=== PATIENT | male | born 1945 | race Caucasian/White ===

== ENCOUNTER 2017-06-26 10:28 | Emergency (ER) | payer MEDICARE, BC ==
--- NOTE | 2017-06-26 10:47 | EDM.PDOC ---
ED HPI GENERAL MEDICAL PROBLEM - General Chief Complaint: Laceration Stated Complaint: THUMB WAS INJURED Time Seen by Provider: 06/26/17 10:42 Source of Information: Reports: Patient History Limitations: Reports: No Limitations - History of Present Illness INITIAL COMMENTS - FREE TEXT/NARRATIVE: Was trapping kaw and accidently caught in right thumb in trap, wearing a glove. No other injuries. - Related Data Allergies Allergy/AdvReac Type Severity Reaction Status Date / Time No Known Allergies Allergy Verified 06/26/17 10:36 Home Meds: Home Meds Acetaminophen/HYDROcodone [Artesian 325-5 MG] 1 tab PO Q4H PRN #10 tab 06/26/17 [Rx ] Amoxicillin/Potassium Clav [Augmentin 875-125 Tablet] 1 each PO BID 10 Days #20 tablet 06/26/17 [Rx] Aspirin 81 mg PO DAILY 06/26/17 [History] Multivitamin [Multivitamins] 06/26/17 [History] Pravastatin [Pravachol] 40 mg PO DAILY 06/26/17 [History] Past Medical History HEENT History: Reports: Hard of Hearing Cardiovascular History: Reports: High Cholesterol - Past Surgical History Male Surgical History: Reports: Prostatectomy Social & Family History - Tobacco Use Smoking Status *Q: Former Smoker Years of Tobacco use: 20 Used Tobacco, but Quit: Yes Month Tobacco Last Used: 36 - Caffeine Use Caffeine Use: Reports: Coffee - Recreational Drug Use Recreational Drug Use: No ED ROS GENERAL - Review of Systems Review Of Systems: ROS reveals no pertinent complaints other than HPI. ED EXAM, SKIN/RASH Exam: See Below Exam Limited By: No Limitations General Appearance: Alert Extremities: Other (laceration from ulnar side of nail bed across base of nailbed and wrapping around side of thumb to mid portion. Actively bleeding. ) Psychiatric: Normal Affect ED SKIN PROCEDURES - Laceration/Wound Repair Right Distal Finger Lac/Wound length In cm: 3 Appearance: Irregular, Mildly Contaminated Distal NVT: Neuro & Vascular Intact Anesthetic Type: Digital Local Anesthesia - Bupivicaine (Marcaine): 0.5% Plain Local Anesthetic Volume: 5cc Skin Prep: Chlorhexidine (Hibiciens) Saline Irrigation (cc's): 100 Exploration/Debridement/Repair: Wound Explored, No Foreign Material Found Suture Size: other (5-0) Suture Type: Nylon Drain Placement: No Sterile Dressing Applied: Nurse Tetanus Status Addressed: Yes Course - Vital Signs Last Recorded V/S: Last Vital Signs Temp 36.9 C 06/26/17 10:39 Pulse 70 06/26/17 10:39 Resp 16 06/26/17 10:39 BP 170/75 H 06/26/17 10:39 Pulse Ox 96 06/26/17 10:39 - Orders/Labs/Meds Meds: Medications Discontinued Medications Generic Name Dose Route Start Last Admin Trade Name Freq PRN Reason Stop Dose Admin Bupivacaine HCl 30 ml 06/26/17 11:05 06/26/17 11:10 Marcaine 0.5% INJECT 06/26/17 11:06 30 ml ONETIME ONE Administration Departure - Departure Time of Disposition: 11:52 Disposition: Home, Self-Care 01 Clinical Impression: Thumb fracture Qualifiers: Encounter type: initial encounter Fracture type: open Phalanx: distal Fracture alignment: displaced Laterality: right Qualified Code(s): S62.521B - Displaced fracture of distal phalanx of right thumb, initial encounter for open fracture - Discharge Information Prescriptions: Acetaminophen/HYDROcodone [Artesian 325-5 MG] 1 tab PO Q4H PRN #10 tab PRN Reason: Pain (Moderate 4-6) Amoxicillin/Potassium Clav [Augmentin 875-125 Tablet] 1 each PO BID 10 Days #20 tablet Instructions: Laceration Care, Adult, [id number] Referrals: Tessy Johns PA [Primary Care Provider] - Forms: ED Department Discharge - Assessment/Plan Assessment:: Had a injury to distal thumb, catching his thumb with glove on in kaw trap. Sustained an open fracture of distal phalynx of right thumb with a 3-4 cm laceration. Plan: X-ray confirms a mildly displaced distal open phlaynx fracture. Case was discussed with Dr. Moreno, orthopedics who recommends cleaning wound up and closing and he will see tomorrow in clinic for fracture follow-up. Wound was closed and dressed with tube gauze. He will be discharged to home with follow- up as planned. Will send home with oral augmentin twice daily for 10 days and will order norco for pain. Other cares discussed including signs of infection.
[2017-06-26] MEDS ORDERED: Bupivacaine 0.5% 30 ML SDV INJECT ONE (11:05)
--- NOTE | 2017-06-26 11:18 | CR ---
Fingers Thumb Rt F5 HISTORY: open laceration right thumb FINDINGS: There is a transverse fracture proximal aspect of the distal phalanx right thumb. Dorsal la ceration is present. The fracture is displaced anteriorly. I see no definite involvement of the artic ular surface. IMPRESSION: Open fracture base of distal phalanx right thumb with anterior displacement.
== END 2017-06-26 12:16 | disposition home or self-care (01) ==
LOC: JP.ED 10:28
DX: S62.521B Displaced fracture of distal phalanx of right thumb, initial encounter for open fracture (principal); E78.00 Pure hypercholesterolemia, unspecified; Z87.891 Personal history of nicotine dependence; Z79.82 Long term (current) use of aspirin; Z79.899 Other long term (current) drug therapy; W23.0XXA Caught, crushed, jammed, or pinched between moving objects, initial encounter
CPT/HCPCS: 12001; 12002; 73140-26-F5; 73140-F5; 99282-25; 99283-25

== ENCOUNTER 2017-09-15 09:20 | Emergency (ER) | payer MEDICARE, BC ==
[2017-09-15] MEDS ORDERED: Lidocaine 2% 20 ML MDV SUBCUT ONE (09:58)
--- NOTE | 2017-09-15 10:06 | EDM.PDOC ---
ED HPI GENERAL MEDICAL PROBLEM - General Chief Complaint: Skin Complaint Stated Complaint: FISH HOOK LT PINKY FINGER Time Seen by Provider: 09/15/17 09:50 Source of Information: Reports: Patient History Limitations: Reports: No Limitations - History of Present Illness INITIAL COMMENTS - FREE TEXT/NARRATIVE: 72 yo male here with a fish hook in the distal/dorsal L 5th finger. Tetanus UTD. 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 (see below) (None) - Related Data Allergies Allergy/AdvReac Type Severity Reaction Status Date / Time No Known Allergies Allergy Verified 09/15/17 09:32 Home Meds: Home Meds Aspirin 81 mg PO DAILY 06/26/17 [History] Multivitamin [Multivitamins] 1 tab PO DAILY 06/26/17 [History] Pravastatin [Pravachol] 40 mg PO DAILY 06/26/17 [History] Past Medical History HEENT History: Reports: Hard of Hearing Cardiovascular History: Reports: High Cholesterol Musculoskeletal History: Reports: Other (See Below) Other Musculoskeletal History: R thumb open Fx - Past Surgical History Male Surgical History: Reports: Prostatectomy Social & Family History - Tobacco Use Smoking Status *Q: Former Smoker Years of Tobacco use: 20 Used Tobacco, but Quit: Yes Month Tobacco Last Used: 30 Second Hand Smoke Exposure: Yes - Caffeine Use Caffeine Use: Reports: Coffee - Recreational Drug Use Recreational Drug Use: No ED ROS GENERAL - Review of Systems Review Of Systems: See Below Skin: Reports: Wound (puncture wound from fish hook still in his finger) Neurological: Reports: No Symptoms ED EXAM, SKIN/RASH Exam: See Below Exam Limited By: No Limitations General Appearance: Alert, WD/WN, No Apparent Distress Neurological: Alert, Oriented, CN II-XII Intact, Normal Cognition, Normal Gait, No Motor/Sensory Deficits Psychiatric: Normal Affect, Normal Mood Skin: Warm, Dry, Normal Color, No Rash, Wound/Incision (small fish hook patricia in the distal L 5th finger just proximal to the fingernail. ) Location, Skin: Upper Extremity, Left Associated features: Tenderness Course - Vital Signs Text/Narrative:: Anesth via digital block with 5 ml of 2% lido. Prep'd with betadine. Removal by covering patricia with #18 g needle and backing the hook out. Dressing applied per nursing. Last Recorded V/S: Last Vital Signs Temp 36.0 C 09/15/17 09:35 Pulse 65 09/15/17 09:35 Resp 16 09/15/17 09:35 BP 171/86 H 09/15/17 09:35 Pulse Ox 94 L 09/15/17 09:35 - Orders/Labs/Meds Meds: Medications Discontinued Medications Generic Name Dose Route Start Last Admin Trade Name Freq PRN Reason Stop Dose Admin Lidocaine HCl 5 ml 09/15/17 09:58 09/15/17 10:07 Xylocaine 2% SUBCUT 09/15/17 09:59 5 ml ONETIME ONE Administration Departure - Departure Time of Disposition: 10:27 Disposition: Home, Self-Care 01 Condition: Good Clinical Impression: Fish hook injury of finger of left hand Qualifiers: Encounter type: initial encounter Qualified Code(s): S69.92XA - Unspecified injury of left wrist, hand and finger(s), initial encounter - Discharge Information Referrals: Tessy Johns PA [Primary Care Provider] - Forms: ED Department Discharge
== END 2017-09-15 10:45 | disposition home or self-care (01) ==
LOC: JP.ED 09:20
DX: S60.457A Superficial foreign body of left little finger, initial encounter (principal); E78.00 Pure hypercholesterolemia, unspecified; Z79.82 Long term (current) use of aspirin; Z79.899 Other long term (current) drug therapy; Z87.891 Personal history of nicotine dependence; W45.8XXA Other foreign body or object entering through skin, initial encounter
CPT/HCPCS: 64450; 99283; 99283-25

== ENCOUNTER 2020-02-20 13:50 | Inpatient (IN) | payer MEDICARE, BC ==
[2020-02-20] MEDS ORDERED: Lactated Ringers 1,000 ML IV SCH (15:30)
[2020-02-20] MEDS ORDERED: Acetaminophen 325 MG Tab PO ONE (15:32)
--- NOTE | 2020-02-20 15:35 | EDM.PDOC ---
ED HPI GENERAL MEDICAL PROBLEM - General Chief Complaint: General Stated Complaint: SWEATING, CHILLS, WEAK Time Seen by Provider: 02/20/20 14:15 Source of Information: Reports: Patient, RN Notes Reviewed History Limitations: Reports: No Limitations - History of Present Illness INITIAL COMMENTS - FREE TEXT/NARRATIVE: 75-year-old gentleman presents emergency department a complaint of fevers chills and weakness, he states he has been ill for about 4 days, fevers been going on for last couple days but progressive weakness to the point where he had difficulty getting out of bed this morning. He did have a tick exposure about 2 to 3 weeks ago does complain of some shortness of breath no problems with urination poor oral intake denies any rash - Related Data Allergies Allergy/AdvReac Type Severity Reaction Status Date / Time No Known Allergies Allergy Verified 02/20/20 15:10 Home Meds: Home Meds Aspirin 81 mg PO DAILY 06/26/17 [History] Multivitamin [Multivitamins] 1 tab PO DAILY 06/26/17 [History] Propranolol [Inderal] 20 mg PO DAILY 08/13/19 [History] Past Medical History HEENT History: Reports: Hard of Hearing, Impaired Vision Cardiovascular History: Reports: High Cholesterol Genitourinary History: Reports: None Musculoskeletal History: Reports: Other (See Below) Other Musculoskeletal History: R thumb open Fx. bilateral knee pain - Past Surgical History Head Surgeries/Procedures: Reports: None HEENT Surgical History: Reports: None Cardiovascular Surgical History: Reports: None GI Surgical History: Reports: None Male Surgical History: Reports: Prostatectomy Musculoskeletal Surgical History: Reports: None Dermatological Surgical History: Reports: None Social & Family History - Tobacco Use Used Tobacco, but Quit: No Second Hand Smoke Exposure: No - Caffeine Use Caffeine Use: Reports: None - Alcohol Use Days Per Week of Alcohol Use: 7 Number of Drinks Per Day: 2 Total Drinks Per Week: 14 - Recreational Drug Use Recreational Drug Use: No ED ROS GENERAL - Review of Systems Review Of Systems: See Below Constitutional: Reports: Fever, Chills, Weakness, Fatigue HEENT: Reports: No Symptoms Respiratory: Reports: Shortness of Breath Cardiovascular: Reports: No Symptoms GI/Abdominal: Reports: No Symptoms : Reports: No Symptoms Musculoskeletal: Reports: No Symptoms. Denies: Joint Pain, Muscle Pain, Muscle Stiffness Skin: Reports: No Symptoms Neurological: Reports: Confusion (Per family) ED EXAM, GENERAL - Physical Exam Exam: See Below Free Text/Narrative:: General: Male, not in any distress, alert and oriented x3 HEENT: head is atraumatic normocephalic, eyes pupils equal round reactive to light, sclera clear no conjunctivitis appreciated. Ears tympanic membranes clear and marley landmarks and light reflex are present bilaterally canals are clear. Nose no septal deviation, nares are clear, no blood present. Mouth mucosa is moist and pink no erythema or exudate noted in soft palate, tongue is midline uvula is midline, dentition is intact. Neck: Supple no thyromegaly no tracheal deviation. Nodes: Cervical nodes subclavicular nodes nontender no palpable lymphadenopathy noted. Lungs: clear to auscultation bilaterally with symmetrical respirations, no adventitious noise appreciated. CV: Regular rate and rhythm S1 and S2 appreciated no murmurs rubs or gallops noted. Abdomen: Soft, nontender, no palpable masses or organomegaly appreciated, no distention no guarding bowel sounds are present, [scars ]. Neuro: GCS 15 Skin: Warm and dry, intact Extremities: No lower extremity edema appreciated, Course - Vital Signs Last Recorded V/S: Last Vital Signs Temp 103.9 F H 02/20/20 15:52 Pulse 73 02/20/20 17:47 Resp 29 H 02/20/20 17:17 BP 137/53 L 02/20/20 17:47 Pulse Ox 94 L 02/20/20 17:47 - Orders/Labs/Meds Orders: Active Orders 24 hr Category Date Time Status Chest 1V Frontal [CR] Stat Exams 02/20/20 15:30 Taken Chest wo Cont [CT] Stat Exams 02/20/20 16:43 Taken CULTURE BLOOD [BC] Urgent Lab 02/20/20 15:40 Received CULTURE BLOOD [BC] Urgent Lab 02/20/20 15:45 Received Doxycycline [Vibramycin] 100 mg Med 02/20/20 17:54 Ordered Sodium Chloride 0.9% [Normal Saline] 100 ml IV ONETIME Lactated Ringers [Ringers, Lactated] 1,000 ml Med 02/20/20 15:30 Active IV ASDIRECTED Blood Culture x2 Reflex Set [OM.PC] Urgent Oth 02/20/20 15:30 Ordered Severe Sepsis Onset Time [OM.PC] Stat Oth 02/20/20 15:30 Ordered Medication Orders Lactated Ringer's (Ringers, Lactated) 1,000 mls @ 999 mls/hr IV ASDIRECTED [facility] Last Admin: 02/20/20 15:50 Dose: 999 mls/hr Documented by: UBALDO Doxycycline Hyclate 100 mg/ (Sodium Chloride) 100 mls @ 100 mls/hr IV ONETIME ONE Stop: 02/20/20 18:53 Labs: Laboratory Tests 02/20/20 02/20/20 02/20/20 Range/Units 15:45 15:45 15:45 WBC 9.9 (4.5-11.0) K/uL RBC 4.94 (4.30-5.90) M/uL Hgb 14.7 (12.0-15.0) g/dL Hct 45.9 (40.0-54.0) % MCV 93 (80-98) fL MCH 30 (27-31) pg MCHC 32 (32-36) % Plt Count 284 (150-400) K/uL Neut % (Auto) 77 H (36-66) % Lymph % (Auto) 13 L (24-44) % Lipscomb % (Auto) 6 (2-6) % Eos % (Auto) 2 (2-4) % Baso % (Auto) 3 H (0-1) % Sodium 137 L (140-148) mmol/L Potassium 4.2 (3.6-5.2) mmol/L Chloride 101 (100-108) mmol/L Carbon Dioxide 25 (21-32) mmol/L Anion Gap 15.2 H (5.0-14.0) mmol/L BUN 17 (7-18) mg/dL Creatinine 1.4 H (0.8-1.3) mg/dL Est Cr Clr Drug Dosing 40.51 mL/min Estimated GFR (MDRD) 49 L (>60) Glucose 149 H (74-106) mg/dL Lactic Acid 1.4 (0.4-2.0) mmol/L Calcium 8.7 (8.5-10.1) mg/dL Total Bilirubin 1.5 H (0.2-1.0) mg/dL AST 30 (15-37) U/L ALT 28 (12-78) U/L Alkaline Phosphatase 34 L (46-116) U/L Troponin I < 0.017 (0.000-0.056) ng/mL C-Reactive Protein 5.13 H (0.0-0.3) mg/dL Total Protein 7.4 (6.4-8.2) g/dL Albumin 4.0 (3.4-5.0) g/dL Globulin 3.4 (2.3-3.5) g/dL Albumin/Globulin Ratio 1.2 (1.2-2.2) Procalcitonin ng/mL Urine Color (YELLOW) Urine Appearance (CLEAR) Urine pH (5.0-8.0) Ur Specific [place]ster (1.008-1.030) Urine Protein (NEGATIVE) mg/dL Urine Glucose (UA) (NEGATIVE) mg/dL Urine Ketones (NEGATIVE) mg/dL Urine Occult Blood (NEGATIVE) Urine Nitrite (NEGATIVE) Urine Bilirubin (NEGATIVE) Urine Urobilinogen (0.2-1.0) EU/dL Ur Leukocyte Esterase (NEGATIVE) Urine RBC (0-5) Urine WBC (0-5) Ur Epithelial Cells Amorphous Sediment Urine Bacteria Urine Mucus SARS Virus RNA (PCR) (NEGATIVE) 02/20/20 02/20/20 02/20/20 Range/Units 15:45 16:26 16:54 WBC (4.5-11.0) K/uL RBC (4.30-5.90) M/uL Hgb (12.0-15.0) g/dL Hct (40.0-54.0) % MCV (80-98) fL MCH (27-31) pg MCHC (32-36) % Plt Count (150-400) K/uL Neut % (Auto) (36-66) % Lymph % (Auto) (24-44) % Lipscomb % (Auto) (2-6) % Eos % (Auto) (2-4) % Baso % (Auto) (0-1) % Sodium (140-148) mmol/L Potassium (3.6-5.2) mmol/L Chloride (100-108) mmol/L Carbon Dioxide (21-32) mmol/L Anion Gap (5.0-14.0) mmol/L BUN (7-18) mg/dL Creatinine (0.8-1.3) mg/dL Est Cr Clr Drug Dosing mL/min Estimated GFR (MDRD) (>60) Glucose (74-106) mg/dL Lactic Acid (0.4-2.0) mmol/L Calcium (8.5-10.1) mg/dL Total Bilirubin (0.2-1.0) mg/dL AST (15-37) U/L ALT (12-78) U/L Alkaline Phosphatase (46-116) U/L Troponin I (0.000-0.056) ng/mL C-Reactive Protein (0.0-0.3) mg/dL Total Protein (6.4-8.2) g/dL Albumin (3.4-5.0) g/dL Globulin (2.3-3.5) g/dL Albumin/Globulin Ratio (1.2-2.2) Procalcitonin 0.52 ng/mL Urine Color Dawn A (YELLOW) Urine Appearance Clear (CLEAR) Urine pH 5.5 (5.0-8.0) Ur Specific [place] >= 1.030 (1.008-1.030) Urine Protein 100 H (NEGATIVE) mg/dL Urine Glucose (UA) Negative (NEGATIVE) mg/dL Urine Ketones Negative (NEGATIVE) mg/dL Urine Occult Blood Small H (NEGATIVE) Urine Nitrite Negative (NEGATIVE) Urine Bilirubin Negative (NEGATIVE) Urine Urobilinogen 0.2 (0.2-1.0) EU/dL Ur Leukocyte Esterase Negative (NEGATIVE) Urine RBC 0-5 (0-5) Urine WBC Not seen (0-5) Ur Epithelial Cells Rare Amorphous Sediment Few Urine Bacteria Not seen Urine Mucus Not seen SARS Virus RNA (PCR) Negative (NEGATIVE) Meds: Medications Generic Name Dose Route Start Last Admin Trade Name Freq PRN Reason Stop Dose Admin Lactated Ringer's 1,000 mls @ 999 mls/hr 02/20/20 15:30 02/20/20 15:50 Ringers, Lactated IV 999 mls/hr ASDIRECTED HARPREET Administration Doxycycline Hyclate 100 mg/ 100 mls @ 100 mls/hr 02/20/20 17:54 Sodium Chloride IV 02/20/20 18:53 ONETIME ONE Discontinued Medications Generic Name Dose Route Start Last Admin Trade Name Freq PRN Reason Stop Dose Admin Acetaminophen 650 mg 02/20/20 15:32 02/20/20 15:52 Tylenol PO 02/20/20 15:33 650 mg NOW ONE Administration Lactated Ringer's 1,000 mls @ 999 mls/hr 02/20/20 16:47 02/20/20 16:50 Ringers, Lactated IV 02/20/20 17:47 999 mls/hr BOLUS ONE Administration Departure - Departure Time of Disposition: 18:00 Disposition: Admitted As Inpatient 65 Condition: Fair Clinical Impression: Polycythemia vera Tick bite Qualifiers: Encounter type: initial encounter Qualified Code(s): W57.XXXA - Bitten or stung by nonvenomous insect and other nonvenomous arthropods, initial encounter - Discharge Information Referrals: Tessy Johns PA [Primary Care Provider] - Forms: ED Department Discharge Sepsis Event Note (ED) - Evaluation Sepsis Screening Result: Possible Sepsis Risk - Focused Exam Vital Signs: Vital Signs Temp Temp Pulse Resp BP Pulse Ox 02/20/20 17:47 73 137/53 L 94 L 02/20/20 17:17 75 29 H 129/58 L 96 02/20/20 16:45 78 36 H 133/63 96 02/20/20 16:16 80 27 H 139/94 H 94 L 02/20/20 15:52 103.9 F H 02/20/20 15:22 103.9 F H 83 29 H 143/66 H 96 02/20/20 15:21 103.9 F H 83 29 H 143/66 H 96 - My Orders Last 24 Hours: My Active Orders 02/20/20 15:30 Chest 1V Frontal [CR] Stat Lactated Ringers [Ringers, Lactated] 1,000 ml IV ASDIRECTED Blood Culture x2 Reflex Set [OM.PC] Urgent Severe Sepsis Onset Time [OM.PC] Stat 02/20/20 15:40 CULTURE BLOOD [BC] Urgent 02/20/20 15:45 CULTURE BLOOD [BC] Urgent 02/20/20 16:43 Chest wo Cont [CT] Stat 02/20/20 17:54 Doxycycline [Vibramycin] 100 mg Sodium Chloride 0.9% [Normal Saline] 100 ml IV ONETIME - Assessment/Plan Last 24 Hours: My Active Orders 02/20/20 15:30 Chest 1V Frontal [CR] Stat Lactated Ringers [Ringers, Lactated] 1,000 ml IV ASDIRECTED Blood Culture x2 Reflex Set [OM.PC] Urgent Severe Sepsis Onset Time [OM.PC] Stat 02/20/20 15:40 CULTURE BLOOD [BC] Urgent 02/20/20 15:45 CULTURE BLOOD [BC] Urgent 02/20/20 16:43 Chest wo Cont [CT] Stat 02/20/20 17:54 Doxycycline [Vibramycin] 100 mg Sodium Chloride 0.9% [Normal Saline] 100 ml IV ONETIME Plan: Assessment Acuity = acute Site and laterality = probable tickborne illness suspicious for early sepsis Etiology = unknown Manifestations = fever, weakness Location of injury = Home Lab values = CBC unremarkable creatinine elevated 1.4 consistent with acute renal failure stage T3a lactic acid normal at 1.4 total bilirubin elevated 1.5 consistent with hyperbilirubinemia troponin is negative CRP slightly elevated 5.13 procalcitonin elevated 0.[address] scan pending COVID 19- Plan Called and discussed the case with hospitalist on-call at 1800 he kindly agreed to come and evaluate the patient emergency department for admission This note was dictated using [employer]! voice recognition software please call with any questions on syntax or grammar.
[2020-02-20] MEDS ORDERED: Lactated Ringers 1,000 ML IV ONE (16:47)
[2020-02-20] MEDS ORDERED: Doxycycline 100 MG in Sodium Chloride 0.9% 100 ML IV ONE (17:54)
[2020-02-20] MEDS ORDERED: Sodium Chloride 0.9% 100 ML ONE (18:05)
--- NOTE | 2020-02-20 18:09 | CRLCT ---
Indication: Hypoxic Technique: Noncontrast CT chest Please note that all CT scans at this facility use dose modulation, iterative reconstruction, and/or weight-based dosing when appropriate to reduce radiation dose to as low as reasonably achievable. Comparison: Chest x-ray same day Findings: Cardiomegaly. No infiltrate. Minimal scarring both lung bases. No pleural or pericardial effusion. No suspicious adenopathy. Vascular calcifications. Visualized thyroid normal. Mild bilateral gynecomastia. Splenomegaly. The spleen measures 16.8 centimeters. Partial visualization of exophytic left renal cyst measuring 6.8 centimeters. Adrenal glands normal. No calcified gallstones. Degenerative changes. No fracture. Impression: Mild bilateral scarring. No focal infiltrate or evidence of viral pneumonia. Splenomegaly. Partial visualization of exophytic left renal cortical cyst. Cardiomegaly without cardiac decompensation. Please note that all CT scans at this facility use dose modulation, iterative reconstruction, and/or weight-based dosing when appropriate to reduce radiation dose to as low as reasonably achievable. Dictated by Yaakov Zimmerman MD @ Feb 20 2020 6:03PM Signed by Dr. Yaakov Zimmerman @ Feb 20 2020 6:08PM
--- NOTE | 2020-02-20 18:10 | PCM.HP.2 ---
H&P History of Present Illness - General Date of Service: 02/20/20 Admit Problem/Dx: Admission Diagnosis/Problem Admission Diagnosis/Problem Fever Source of Information: Patient, Family, Provider History Limitations: Reports: No Limitations - History of Present Illness Initial Comments - Free Text/Narative: Mr. Beckwith is a 75-year-old gentleman who was admitted through the emergency department with weakness, fever, dehydration, secondary to febrile illness. He has not felt well over the past 3 days during that period of time has had intermittent temperature elevations and progressive weakness with decrease in oral intake. His has noted that he intermittently has been confused which is very unusual for him. He presented to the emergency department for evalua tion, he denies recent sick contacts and reports that they have been isolating at home for the most part. White blood cell count is within normal range bilirubin is mildly elevated, other liver studies are within normal range. He does report a tick exposure 2 to 3 weeks ago. He has had a nonproductive cough, CT scan of the chest shows no obvious infiltrates. [facility] department he has had documented temperature elevation as well as evidence of sepsis with tachycardia. Is clear and he denies significant abdominal pain or diarrhea. No other obvious source of infection identified by history physical examination. - Related Data Allergies/Adverse Reactions: Allergies Allergy/AdvReac Type Severity Reaction Status Date / Time No Known Allergies Allergy Verified 02/20/20 15:10 Home Medications: Home Meds Aspirin 81 mg PO DAILY 06/26/17 [History] Multivitamin [Multivitamins] 1 tab PO DAILY 06/26/17 [History] Propranolol [Inderal] 20 mg PO DAILY 08/13/19 [History] Past Medical History HEENT History: Reports: Hard of Hearing, Impaired Vision Cardiovascular History: Reports: High Cholesterol Respiratory History: Reports: None Gastrointestinal History: Reports: None Genitourinary History: Reports: None Musculoskeletal History: Reports: Other (See Below) Other Musculoskeletal History: R thumb open Fx. bilateral knee pain Neurological History: Reports: None Psychiatric History: Reports: None Endocrine/Metabolic History: Reports: None Hematologic History: Reports: None Immunologic History: Reports: None Oncologic (Cancer) History: Reports: None Dermatologic History: Reports: None - Past Surgical History Head Surgeries/Procedures: Reports: None HEENT Surgical History: Reports: None Cardiovascular Surgical History: Reports: None GI Surgical History: Reports: None Male Surgical History: Reports: Prostatectomy Musculoskeletal Surgical History: Reports: None Dermatological Surgical History: Reports: None Social & Family History - Tobacco Use Used Tobacco, but Quit: No Second Hand Smoke Exposure: No - Caffeine Use Caffeine Use: Reports: None - Alcohol Use Days Per Week of Alcohol Use: 7 Number of Drinks Per Day: 2 Total Drinks Per Week: 14 - Recreational Drug Use Recreational Drug Use: No H&P Review of Systems - Review of Systems: Review Of Systems: See Below General: Reports: Fever, Chills, Malaise, Weakness, Diaphoresis, Decreased Appetite HEENT: Reports: No Symptoms Pulmonary: Reports: Cough. Denies: Shortness of Breath, Wheezing, Pleuritic Chest Pain, Sputum, Hemoptysis Cardiovascular: Reports: No Symptoms Gastrointestinal: Reports: No Symptoms Genitourinary: Reports: No Symptoms Musculoskeletal: Reports: No Symptoms Skin: Reports: No Symptoms Psychiatric: Reports: No Symptoms Neurological: Reports: Headache. Denies: Confusion, Dizziness, Numbness, Paresthesia, Pre-Existing Deficit, Seizure, Syncope Hematologic/Lymphatic: Reports: No Symptoms Immunologic: Reports: No Symptoms Exam - Exam Exam: See Below - Vital Signs Vital Signs: Last Vital Signs Temp 99.9 F 02/20/20 18:06 Pulse 73 02/20/20 17:47 Resp 29 H 02/20/20 17:17 BP 137/53 L 02/20/20 17:47 Pulse Ox 94 L 02/20/20 17:47 Weight: 199 lb - Exam Quality Assessment: DVT Prophylaxis General: Alert, Oriented, Cooperative, Moderate Distress HEENT: Conjunctiva Clear, Hearing Intact, Normal Nasal Septum, Posterior Pharynx Clear, Pupils Equal. No: Mucosa Moist & [place] Neck: Supple, Trachea Midline, +2 Carotid Pulse wo Bruit Lungs: Clear to Auscultation, Normal Respiratory Effort Cardiovascular: Regular Rate, Regular Rhythm, Normal S1, Normal S2. No: Systolic Murmur, Diastolic Murmur GI/Abdominal Exam: Soft, Non-Tender, No Organomegaly, No Distention Back Exam: Normal Inspection, Full Range of Motion Extremities: Non-Tender, No Pedal Edema Skin: Warm, Dry, Intact Neurological: Cranial Nerves Intact, Strength Equal Bilateral, Normal Speech, Normal Tone, Sensation Intact. No: Focal Deficit Neuro Extensive - Mental Status: Alert, Oriented x3, Normal Mood/Affect, Normal Cognition, Memory Intact - Patient Data Lab Results Last 24 hrs: Laboratory Results - last 24 hr 02/20/20 02/20/20 02/20/20 Range/Units 15:45 15:45 15:45 WBC 9.9 (4.5-11.0) K/uL RBC 4.94 (4.30-5.90) M/uL Hgb 14.7 (12.0-15.0) g/dL Hct 45.9 (40.0-54.0) % MCV 93 (80-98) fL MCH 30 (27-31) pg MCHC 32 (32-36) % Plt Count 284 (150-400) K/uL Neut % (Auto) 77 H (36-66) % Lymph % (Auto) 13 L (24-44) % [place] % (Auto) 6 (2-6) % Eos % (Auto) 2 (2-4) % Baso % (Auto) 3 H (0-1) % Sodium 137 L (140-148) mmol/L Potassium 4.2 (3.6-5.2) mmol/L Chloride 101 (100-108) mmol/L Carbon Dioxide 25 (21-32) mmol/L Anion Gap 15.2 H (5.0-14.0) mmol/L BUN 17 (7-18) mg/dL Creatinine 1.4 H (0.8-1.3) mg/dL Est Cr Clr Drug Dosing 40.51 mL/min Estimated GFR (MDRD) 49 L (>60) Glucose 149 H (74-106) mg/dL Lactic Acid 1.4 (0.4-2.0) mmol/L Calcium 8.7 (8.5-10.1) mg/dL Total Bilirubin 1.5 H (0.2-1.0) mg/dL AST 30 (15-37) U/L ALT 28 (12-78) U/L Alkaline Phosphatase 34 L (46-116) U/L Troponin I < 0.017 (0.000-0.056) ng/mL C-Reactive Protein 5.13 H (0.0-0.3) mg/dL Total Protein 7.4 (6.4-8.2) g/dL Albumin 4.0 (3.4-5.0) g/dL Globulin 3.4 (2.3-3.5) g/dL Albumin/Globulin Ratio 1.2 (1.2-2.2) Procalcitonin ng/mL Urine Color (YELLOW) Urine Appearance (CLEAR) Urine pH (5.0-8.0) Ur Specific [place] (1.008-1.030) Urine Protein (NEGATIVE) mg/dL Urine Glucose (UA) (NEGATIVE) mg/dL Urine Ketones (NEGATIVE) mg/dL Urine Occult Blood (NEGATIVE) Urine Nitrite (NEGATIVE) Urine Bilirubin (NEGATIVE) Urine Urobilinogen (0.2-1.0) EU/dL Ur Leukocyte Esterase (NEGATIVE) Urine RBC (0-5) Urine WBC (0-5) Ur Epithelial Cells Amorphous Sediment Urine Bacteria Urine Mucus SARS Virus RNA (PCR) (NEGATIVE) 02/20/20 02/20/20 02/20/20 Range/Units 15:45 16:26 16:54 WBC (4.5-11.0) K/uL RBC (4.30-5.90) M/uL Hgb (12.0-15.0) g/dL Hct (40.0-54.0) % MCV (80-98) fL MCH (27-31) pg MCHC (32-36) % Plt Count (150-400) K/uL Neut % (Auto) (36-66) % Lymph % (Auto) (24-44) % [place] % (Auto) (2-6) % Eos % (Auto) (2-4) % Baso % (Auto) (0-1) % Sodium (140-148) mmol/L Potassium (3.6-5.2) mmol/L Chloride (100-108) mmol/L Carbon Dioxide (21-32) mmol/L Anion Gap (5.0-14.0) mmol/L BUN (7-18) mg/dL Creatinine (0.8-1.3) mg/dL Est Cr Clr Drug Dosing mL/min Estimated GFR (MDRD) (>60) Glucose (74-106) mg/dL Lactic Acid (0.4-2.0) mmol/L Calcium (8.5-10.1) mg/dL Total Bilirubin (0.2-1.0) mg/dL AST (15-37) U/L ALT (12-78) U/L Alkaline Phosphatase (46-116) U/L Troponin I (0.000-0.056) ng/mL C-Reactive Protein (0.0-0.3) mg/dL Total Protein (6.4-8.2) g/dL Albumin (3.4-5.0) g/dL Globulin (2.3-3.5) g/dL Albumin/Globulin Ratio (1.2-2.2) Procalcitonin 0.52 ng/mL Urine Color [place] A (YELLOW) Urine Appearance Clear (CLEAR) Urine pH 5.5 (5.0-8.0) Ur Specific [place] >= 1.030 (1.008-1.030) Urine Protein 100 H (NEGATIVE) mg/dL Urine Glucose (UA) Negative (NEGATIVE) mg/dL Urine Ketones Negative (NEGATIVE) mg/dL Urine Occult Blood Small H (NEGATIVE) Urine Nitrite Negative (NEGATIVE) Urine Bilirubin Negative (NEGATIVE) Urine Urobilinogen 0.2 (0.2-1.0) EU/dL Ur Leukocyte Esterase Negative (NEGATIVE) Urine RBC 0-5 (0-5) Urine WBC Not seen (0-5) Ur Epithelial Cells Rare Amorphous Sediment Few Urine Bacteria Not seen Urine Mucus Not seen SARS Virus RNA (PCR) Negative (NEGATIVE) Result Diagrams: 02/20/20 15:45 02/20/20 15:45 Sepsis Event Note - Evaluation Sepsis Screening Result: Possible Sepsis Risk - Focused Exam Vital Signs: Vital Signs Temp Temp Pulse Resp BP Pulse Ox 02/20/20 18:06 99.9 F 02/20/20 17:47 73 137/53 L 94 L 02/20/20 17:17 75 29 H 129/58 L 96 02/20/20 16:45 78 36 H 133/63 96 02/20/20 16:16 80 27 H 139/94 H 94 L 02/20/20 15:52 103.9 F H 02/20/20 15:22 103.9 F H 83 29 H 143/66 H 96 02/20/20 15:21 103.9 F H 83 29 H 143/66 H 96 Date Exam was Performed: 02/20/20 Time Exam was Performed: 18:53 *Q Meaningful Use (ADM) - VTE Risk Assess *Q Each Risk Factor Represents 1 Point: Obesity ( BMI > 25 kg/m2) Total Score 1 Point Risk Factors: 1 Each Risk Factor Represents 2 Points: None Total Score 2 Point Risk Factors: 0 Each Risk Factor Represents 3 Points: Age 75 Years or Greater Total Score 3 Point Risk Factors: 3 Each Risk Factor Represents 5 Points: None Total Score 5 Point Risk Factors: 0 Venous Thromboembolism Risk Factor Score *Q: 4 Problem List Initiated/Reviewed/Updated: Yes Orders Last 24hrs: Active Orders 24 hr Category Date Time Status Patient Status Manage Transfer [TRANSFER] Routine ADT 02/20/20 18:04 Ordered Chest 1V Frontal [CR] Stat Exams 02/20/20 15:30 Taken CULTURE BLOOD [BC] Urgent Lab 02/20/20 15:40 Received CULTURE BLOOD [BC] Urgent Lab 02/20/20 15:45 Received Doxycycline [Vibramycin] 100 mg Med 02/20/20 17:54 Active Sodium Chloride 0.9% [Normal Saline] 100 ml IV ONETIME Lactated Ringers [Ringers, Lactated] 1,000 ml Med 02/20/20 15:30 Active IV ASDIRECTED Blood Culture x2 Reflex Set [OM.PC] Urgent Oth 02/20/20 15:30 Ordered Severe Sepsis Onset Time [OM.PC] Stat Oth 02/20/20 15:30 Ordered Resuscitation Status Routine Resus Stat 02/20/20 18:06 Ordered Medication Orders Lactated Ringer's (Ringers, Lactated) 1,000 mls @ 999 mls/hr IV ASDIRECTED [facility] Last Admin: 02/20/20 15:50 Dose: 999 mls/hr Documented by: UBALDO Doxycycline Hyclate 100 mg/ (Sodium Chloride) 100 mls @ 100 mls/hr IV ONETIME ONE Stop: 02/20/20 18:53 Last Admin: 02/20/20 18:09 Dose: 100 mls/hr Documented by: UBALDO Assessment/Plan Comment:: ASSESSMENT AND PLAN FEBRILE ILLNESS WITH SEPSIS-anaplasmosis versus viral syndrome versus unidentified bacterial infection. History of fever with progressive weakness over the past 3 days. He does have a history of tick exposure 2 to 3 weeks ago. CRP is found to be elevated, procalcitonin modestly elevated. COVID-19 negative. 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 MAINTENANCE ISSUES -DVT prophylaxis; Lovenox 40 mg subcu daily -GI prophylaxis; not indicated -Reis catheter; not indicated -Nutrition; regular diet -Nicotine dependence; not required CODE STATUS-FULL CODE ADMISSION STATUS-patient will be admitted to inpatient status, expect at least a 2 night hospital stay for evaluation and management of problems as outlined above. At the time of this admission I do not reasonably expected evaluation and management of this problem will require more than a 96 hour hospital stay. DISPOSITION-anticipate discharge to home after the hospital stay. PRIMARY CARE PROVIDER-Giovanna Johns - Mortality Measure Prognosis:: Good
[2020-02-20] MEDS ORDERED: Sodium Chloride 0.9% 10 ML Syringe FLUSH PRN (18:49)
[2020-02-20] MEDS ORDERED: Ondansetron 4 MG/2 ML SDV IV PRN (18:49)
[2020-02-20] MEDS ORDERED: Polyethylene Glycol 3350 Powder 17 GM Packet PO PRN (18:49)
[2020-02-20] MEDS: Sodium Chloride 0.9% 1,000 ML IV SCH (19:00)
[2020-02-20] MEDS ORDERED: Ibuprofen 400 MG Tab PO ONE (19:01)
[2020-02-20] MEDS: cefTRIAXone 1 GM in Sodium Chloride 0.9% 50 ML IV SCH (19:46)
[2020-02-20] MEDS: Acetaminophen 325 MG Tab PO PRN (20:29)
[2020-02-20] MEDS: Melatonin 3 MG Tab PO SCH (20:32)
[2020-02-20] MEDS: Enoxaparin 40 MG/0.4 ML Syringe SUBCUT SCH (20:32)
[2020-02-20] MEDS: Lactobacillus Rhamnosus GG (Probiotic) Cap PO SCH ×2 (20:32→21:30)
[2020-02-21] MEDS: Acetaminophen 325 MG Tab PO PRN ×4 (00:38→23:20)
[2020-02-21] MEDS: Sodium Chloride 0.9% 1,000 ML IV SCH ×2 (03:42→13:26)
[2020-02-21] MEDS ORDERED: Doxycycline 100 MG in Sodium Chloride 0.9% 100 ML IV SCH (07:00)
[2020-02-21] MEDS: Doxycycline 100 MG in Sodium Chloride 0.9% 100 ML IV SCH ×2 (08:26→20:39)
[2020-02-21] MEDS ORDERED: Propranolol 40 MG Tab PO SCH (09:00)
[2020-02-21] MEDS: Aspirin 81 MG Tab.Chew PO SCH (09:57)
[2020-02-21] MEDS: Lactobacillus Rhamnosus GG (Probiotic) Cap PO SCH ×2 (09:57→20:39)
[2020-02-21] MEDS: Propranolol 60 MG Cap.ER PO SCH (10:25)
--- NOTE | 2020-02-21 11:08 | PCM.PN ---
- General Info Date of Service: 02/21/20 Subjective Update: Mr. Beckwith experienced a marked temperature elevation to 104.7 degrees last night after admission. Since his fever broke he has been stable and feels stronger, there is been no recurrent temperature elevation. Vital signs have been stable. Denies significant symptoms this morning, specifically no headache, muscle aches, shortness of breath, cough, abdominal pain, or diarrhea. - Review of Systems General: Reports: Fever, Weakness, Fatigue, Chills Pulmonary: Reports: No Symptoms Cardiovascular: Reports: No Symptoms Gastrointestinal: Reports: No Symptoms Genitourinary: Reports: No Symptoms - Patient Data Vitals - Most Recent: Last Vital Signs Temp 98.6 F 02/21/20 08:22 Pulse 64 02/21/20 08:22 Resp 18 02/21/20 07:06 BP 116/60 02/21/20 07:06 Pulse Ox 96 02/21/20 08:22 Weight - Most Recent: 199 lb I&O - Last 24 Hours: Intake & Output 02/20/20 02/21/20 02/21/20 22:59 06:59 14:59 Intake Total 2100 1650 300 Output Total 600 300 Balance 2100 1050 0 Lab Results Last 24 Hours: Laboratory Results - last 24 hr 02/20/20 02/20/20 02/20/20 Range/Units 15:45 15:45 15:45 WBC 9.9 (4.5-11.0) K/uL RBC 4.94 (4.30-5.90) M/uL Hgb 14.7 (12.0-15.0) g/dL Hct 45.9 (40.0-54.0) % MCV 93 (80-98) fL MCH 30 (27-31) pg MCHC 32 (32-36) % Plt Count 284 (150-400) K/uL Neut % (Auto) 77 H (36-66) % Lymph % (Auto) 13 L (24-44) % [place] % (Auto) 6 (2-6) % Eos % (Auto) 2 (2-4) % Baso % (Auto) 3 H (0-1) % Add Manual Diff Neutrophils % (Manual) (36-66) % Band Neutrophils % (5-11) % Lymphocytes % (Manual) (24-44) % Monocytes % (Manual) (2-6) % Eosinophils % (Manual) (2-4) % Sodium 137 L (140-148) mmol/L Potassium 4.2 (3.6-5.2) mmol/L Chloride 101 (100-108) mmol/L Carbon Dioxide 25 (21-32) mmol/L Anion Gap 15.2 H (5.0-14.0) mmol/L BUN 17 (7-18) mg/dL Creatinine 1.4 H (0.8-1.3) mg/dL Est Cr Clr Drug Dosing 40.51 mL/min Estimated GFR (MDRD) 49 L (>60) Glucose 149 H (74-106) mg/dL Lactic Acid 1.4 (0.4-2.0) mmol/L Calcium 8.7 (8.5-10.1) mg/dL Total Bilirubin 1.5 H (0.2-1.0) mg/dL AST 30 (15-37) U/L ALT 28 (12-78) U/L Alkaline Phosphatase 34 L (46-116) U/L Troponin I < 0.017 (0.000-0.056) ng/mL C-Reactive Protein 5.13 H (0.0-0.3) mg/dL Total Protein 7.4 (6.4-8.2) g/dL Albumin 4.0 (3.4-5.0) g/dL Globulin 3.4 (2.3-3.5) g/dL Albumin/Globulin Ratio 1.2 (1.2-2.2) Procalcitonin ng/mL Urine Color (YELLOW) Urine Appearance (CLEAR) Urine pH (5.0-8.0) Ur Specific [place] (1.008-1.030) Urine Protein (NEGATIVE) mg/dL Urine Glucose (UA) (NEGATIVE) mg/dL Urine Ketones (NEGATIVE) mg/dL Urine Occult Blood (NEGATIVE) Urine Nitrite (NEGATIVE) Urine Bilirubin (NEGATIVE) Urine Urobilinogen (0.2-1.0) EU/dL Ur Leukocyte Esterase (NEGATIVE) Urine RBC (0-5) Urine WBC (0-5) Ur Epithelial Cells Amorphous Sediment Urine Bacteria Urine Mucus SARS Virus RNA (PCR) (NEGATIVE) 02/20/20 02/20/20 02/20/20 Range/Units 15:45 16:26 16:54 WBC (4.5-11.0) K/uL RBC (4.30-5.90) M/uL Hgb (12.0-15.0) g/dL Hct (40.0-54.0) % MCV (80-98) fL MCH (27-31) pg MCHC (32-36) % Plt Count (150-400) K/uL Neut % (Auto) (36-66) % Lymph % (Auto) (24-44) % [place] % (Auto) (2-6) % Eos % (Auto) (2-4) % Baso % (Auto) (0-1) % Add Manual Diff Neutrophils % (Manual) (36-66) % Band Neutrophils % (5-11) % Lymphocytes % (Manual) (24-44) % Monocytes % (Manual) (2-6) % Eosinophils % (Manual) (2-4) % Sodium (140-148) mmol/L Potassium (3.6-5.2) mmol/L Chloride (100-108) mmol/L Carbon Dioxide (21-32) mmol/L Anion Gap (5.0-14.0) mmol/L BUN (7-18) mg/dL Creatinine (0.8-1.3) mg/dL Est Cr Clr Drug Dosing mL/min Estimated GFR (MDRD) (>60) Glucose (74-106) mg/dL Lactic Acid (0.4-2.0) mmol/L Calcium (8.5-10.1) mg/dL Total Bilirubin (0.2-1.0) mg/dL AST (15-37) U/L ALT (12-78) U/L Alkaline Phosphatase (46-116) U/L Troponin I (0.000-0.056) ng/mL C-Reactive Protein (0.0-0.3) mg/dL Total Protein (6.4-8.2) g/dL Albumin (3.4-5.0) g/dL Globulin (2.3-3.5) g/dL Albumin/Globulin Ratio (1.2-2.2) Procalcitonin 0.52 ng/mL Urine Color [place] A (YELLOW) Urine Appearance Clear (CLEAR) Urine pH 5.5 (5.0-8.0) Ur Specific [place] >= 1.030 (1.008-1.030) Urine Protein 100 H (NEGATIVE) mg/dL Urine Glucose (UA) Negative (NEGATIVE) mg/dL Urine Ketones Negative (NEGATIVE) mg/dL Urine Occult Blood Small H (NEGATIVE) Urine Nitrite Negative (NEGATIVE) Urine Bilirubin Negative (NEGATIVE) Urine Urobilinogen 0.2 (0.2-1.0) EU/dL Ur Leukocyte Esterase Negative (NEGATIVE) Urine RBC 0-5 (0-5) Urine WBC Not seen (0-5) Ur Epithelial Cells Rare Amorphous Sediment Few Urine Bacteria Not seen Urine Mucus Not seen SARS Virus RNA (PCR) Negative (NEGATIVE) 02/21/20 02/21/20 Range/Units 04:22 04:22 WBC 8.2 (4.5-11.0) K/uL RBC 4.39 (4.30-5.90) M/uL Hgb 13.2 (12.0-15.0) g/dL Hct 40.9 (40.0-54.0) % MCV 93 (80-98) fL MCH 30 (27-31) pg MCHC 32 (32-36) % Plt Count 204 (150-400) K/uL Neut % (Auto) (36-66) % Lymph % (Auto) (24-44) % [place] % (Auto) (2-6) % Eos % (Auto) (2-4) % Baso % (Auto) (0-1) % Add Manual Diff Yes Neutrophils % (Manual) 79 H (36-66) % Band Neutrophils % 2 L (5-11) % Lymphocytes % (Manual) 12 L (24-44) % Monocytes % (Manual) 4 (2-6) % Eosinophils % (Manual) 1 L (2-4) % Sodium 142 (140-148) mmol/L Potassium 3.9 (3.6-5.2) mmol/L Chloride 105 (100-108) mmol/L Carbon Dioxide 26 (21-32) mmol/L Anion Gap 10.8 (5.0-14.0) mmol/L BUN 23 H (7-18) mg/dL Creatinine 1.4 H (0.8-1.3) mg/dL Est Cr Clr Drug Dosing 40.51 mL/min Estimated GFR (MDRD) 49 L (>60) Glucose 129 H (74-106) mg/dL Lactic Acid (0.4-2.0) mmol/L Calcium 7.7 L (8.5-10.1) mg/dL Total Bilirubin 1.0 (0.2-1.0) mg/dL AST 41 H (15-37) U/L ALT 34 (12-78) U/L Alkaline Phosphatase 30 L (46-116) U/L Troponin I (0.000-0.056) ng/mL C-Reactive Protein (0.0-0.3) mg/dL Total Protein 5.8 L (6.4-8.2) g/dL Albumin 3.1 L (3.4-5.0) g/dL Globulin 2.7 (2.3-3.5) g/dL Albumin/Globulin Ratio 1.2 (1.2-2.2) Procalcitonin ng/mL Urine Color (YELLOW) Urine Appearance (CLEAR) Urine pH (5.0-8.0) Ur Specific [place] (1.008-1.030) Urine Protein (NEGATIVE) mg/dL Urine Glucose (UA) (NEGATIVE) mg/dL Urine Ketones (NEGATIVE) mg/dL Urine Occult Blood (NEGATIVE) Urine Nitrite (NEGATIVE) Urine Bilirubin (NEGATIVE) Urine Urobilinogen (0.2-1.0) EU/dL Ur Leukocyte Esterase (NEGATIVE) Urine RBC (0-5) Urine WBC (0-5) Ur Epithelial Cells Amorphous Sediment Urine Bacteria Urine Mucus SARS Virus RNA (PCR) (NEGATIVE) Med Orders - Current: Current Medications Acetaminophen (Tylenol) 650 mg PO Q4H PRN PRN Reason: Pain (Mild 1-3)/fever Last Admin: 02/21/20 08:27 Dose: 650 mg Documented by: Aspirin (Aspirin) 81 mg PO DAILY [facility] Last Admin: 02/21/20 09:57 Dose: 81 mg Documented by: Enoxaparin Sodium (Lovenox) 40 mg SUBCUT BEDTIME [facility] Last Admin: 02/20/20 20:32 Dose: 40 mg Documented by: Ceftriaxone Sodium 1 gm/ (Sodium Chloride) 50 mls @ 100 mls/hr IV DAILY@1800 [facility] Last Admin: 02/20/20 19:46 Dose: 100 mls/hr Documented by: Doxycycline Hyclate 100 mg/ (Sodium Chloride) 100 mls @ 100 mls/hr IV Q12H [facility] Last Admin: 02/21/20 08:26 Dose: 100 mls/hr Documented by: Sodium Chloride (Normal Saline) 1,000 mls @ 75 mls/hr IV ASDIRECTED [facility] Lactobacillus Rhamnosus (Culturelle) 1 cap PO BID [facility] Last Admin: 02/21/20 09:57 Dose: 1 cap Documented by: Melatonin (Melatonin) 9 mg PO BEDTIME [facility] Last Admin: 02/20/20 20:32 Dose: 9 mg Documented by: Ondansetron HCl (Zofran) 4 mg IV Q4H PRN PRN Reason: Nausea/Vomiting Polyethylene Glycol (Miralax) 17 gm PO DAILY PRN PRN Reason: Constipation Propranolol HCl (Inderal La) 60 mg PO DAILY [facility] Last Admin: 02/21/20 10:25 Dose: 60 mg Documented by: Sodium Chloride (Saline Flush) 10 ml FLUSH ASDIRECTED PRN PRN Reason: Keep Vein Open Discontinued Medications Acetaminophen (Tylenol) 650 mg PO NOW ONE Stop: 02/20/20 15:33 Last Admin: 02/20/20 15:52 Dose: 650 mg Documented by: Lactated Ringer's (Ringers, Lactated) 1,000 mls @ 999 mls/hr IV ASDIRECTED [facility] Last Admin: 02/20/20 15:50 Dose: 999 mls/hr Documented by: Lactated Ringer's (Ringers, Lactated) 1,000 mls @ 999 mls/hr IV BOLUS ONE Stop: 02/20/20 17:47 Last Admin: 02/20/20 16:50 Dose: 999 mls/hr Documented by: Doxycycline Hyclate 100 mg/ (Sodium Chloride) 100 mls @ 100 mls/hr IV ONETIME ONE Stop: 02/20/20 18:53 Last Admin: 02/20/20 18:09 Dose: 100 mls/hr Documented by: Sodium Chloride (Normal Saline) Confirm Administered Dose 100 mls @ as directed .ROUTE .STK-MED ONE Stop: 02/20/20 18:06 Last Admin: 02/20/20 20:50 Dose: Not Given Documented by: Sodium Chloride (Normal Saline) 1,000 mls @ 125 mls/hr IV ASDIRECTED [facility] Last Admin: 02/21/20 03:42 Dose: 125 mls/hr Documented by: Ibuprofen (Motrin) 400 mg PO ONETIME ONE Stop: 02/20/20 19:02 Last Admin: 02/20/20 19:46 Dose: 400 mg Documented by: - Exam Quality Assessment: DVT Prophylaxis General: Alert, Oriented, Cooperative, No Acute Distress Lungs: Clear to Auscultation, Normal Respiratory Effort Cardiovascular: Regular Rate, Regular Rhythm, No Murmurs GI/Abdominal Exam: Soft, Non-Tender, No Organomegaly, No Distention Extremities: Non-Tender, No Pedal Edema Sepsis Event Note - Evaluation Sepsis Screening Result: No Definite Risk - Focused Exam Vital Signs: Vital Signs Temp Temp Pulse Resp BP Pulse Ox 02/21/20 08:22 98.6 F 64 96 02/21/20 07:06 98.9 F 60 18 116/60 95 02/21/20 02:00 98.9 F 59 L 16 106/55 L 94 L 02/21/20 00:38 99.3 F Date Exam was Performed: 02/21/20 Time Exam was Performed: 11:05 - Problem List Review Problem List Initiated/Reviewed/Updated: Yes - My Orders Last 24 Hours: My Active Orders 02/20/20 Dinner Regular Diet [DIET] 02/20/20 18:06 Resuscitation Status Routine 02/20/20 18:49 Acetaminophen [Tylenol] 650 mg PO Q4H PRN Lactobacillus Rhamnosus GG [Culturelle] 1 cap PO BID Ondansetron [Zofran] 4 mg IV Q4H PRN Sodium Chloride 0.9% [Saline Flush] 10 ml FLUSH ASDIRECTED PRN cefTRIAXone [Rocephin] 1 gm Sodium Chloride 0.9% [Normal Saline] 50 ml IV DAILY@1800 polyethylene glycoL 3350 [MiraLAX] 17 gm PO DAILY PRN 02/20/20 18:49 Patient Status [ADT] Routine Ambulate [RC] QID Intake and Output [RC] QSHIFT Notify Provider Vital Signs [RC] ASDIRECTED Oxygen Therapy [RC] PRN Peripheral IV Care [RC] . DIRECTED Up With Assistance [RC] ASDIRECTED Up to Chair [RC] QID VTE/DVT Education [RC] Per Unit Routine Vital Signs [RC] Q4H Peripheral IV Insertion Adult [OM.PC] Routine 02/20/20 18:57 HUMAN GRANULOCYTIC UMA-HGE Urgent LYME, TOTAL AB TEST/REFLEX Urgent 02/20/20 21:00 Enoxaparin [Lovenox] 40 mg SUBCUT BEDTIME Melatonin 9 mg PO BEDTIME 02/21/20 08:00 Doxycycline [Vibramycin] 100 mg Sodium Chloride 0.9% [Normal Saline] 100 ml IV Q12H 02/21/20 09:00 Aspirin 81 mg PO DAILY 02/21/20 11:00 Propranolol [Inderal LA] 60 mg PO DAILY 02/21/20 11:15 Sodium Chloride 0.9% [Normal Saline] 1,000 ml IV ASDIRECTED 02/22/20 05:00 BASIC METABOLIC PANEL,BMP [CHEM] Timed - Plan Plan:: ASSESSMENT AND PLAN FEBRILE ILLNESS WITH SEPSIS-anaplasmosis versus viral syndrome versus unidentified bacterial infection. He does have a history of tick exposure 2 to 3 weeks ago. CRP is found to be elevated, procalcitonin modestly elevated. COVID-19 negative. Febrile since last night, feels improved and stronger. 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 At the time of this admission I do not reasonably expected evaluation and management of this problem will require more than a 96 hour hospital stay. DISPOSITION-anticipate discharge to home after the hospital stay. PRIMARY CARE PROVIDER-Giovanna Johns
[2020-02-21] MEDS: cefTRIAXone 1 GM in Sodium Chloride 0.9% 50 ML IV SCH (17:12)
[2020-02-21] MEDS: Melatonin 3 MG Tab PO SCH (20:39)
[2020-02-21] MEDS: Enoxaparin 40 MG/0.4 ML Syringe SUBCUT SCH (20:39)
[2020-02-22] MEDS: Acetaminophen 325 MG Tab PO PRN ×2 (03:27→12:25)
[2020-02-22] MEDS: Sodium Chloride 0.9% 1,000 ML IV SCH (04:40)
[2020-02-22] MEDS: Doxycycline 100 MG in Sodium Chloride 0.9% 100 ML IV SCH (07:58)
--- NOTE | 2020-02-22 09:36 | CR ---
CHEST: Portable 02/20/2020 at 2:49 PM CLINICAL HISTORY:Liver COMPARISON:None FINDINGS: Patient has a moderate size left the lower lobe infiltrate. Heart is enlarged. Lung markings are exaggerated by poor inspiratory level and lordotic position. Erika IMPRESSION: Limited study Left lower lobe pneumonic infiltrate Cardiomegaly
[2020-02-22] MEDS: Lactobacillus Rhamnosus GG (Probiotic) Cap PO SCH (09:56)
[2020-02-22] MEDS: Propranolol 60 MG Cap.ER PO SCH (09:56)
[2020-02-22] MEDS: Aspirin 81 MG Tab.Chew PO SCH (10:10)
--- NOTE | 2020-02-22 11:31 | PCM.DCSUM1 ---
Discharge Summary - Hospital Course Brief History: Healthy 75-year-old male who presented with fevers and progressive weakness. He was admitted for management of a presumed tickborne illness with sepsis. 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 Work- up in the emergency room raise suspicion for anaplasmosis versus possibly a viral syndrome. Cultures were obtained and he was empirically started on antibiotic coverage for anaplasmosis. Serologies to look for Lyme disease and anaplasmosis were collected and are pending. Patient did receive IV fluids al kaveh with the IV antibiotics after admission. He did spike a fever to greater than 104 F shortly after admission. By the next morning however he was feeling a fair amount better with improved strength and appetite. His vital signs were all stable. Patient felt well enough to go home but given his very high fever on the night before is recommended that he stay for additional IV antibiotic therapy. His cultures have all been negative. He did have a fever the night before discharge though was only 101 rather than 104. He feels well. He has been up and walking around and has only minimal residual weakness. Laboratory studies have remained fairly unremarkable. I remain fairly suspicious that this is a tickborne disease and likely anaplasmosis though the lab studies did not quite fit perfectly. He did have a known tick exposure and symptoms would fit well. He is improving with treatment for anaplasmosis as well. I did recommend that he complete the 21-day course of antibiotics. He will be following up with his primary care in about 1 week unless things do not continue to get better. His tick serologies are still pending. We did review potential side effects of the doxycycline include photosensitivity. - Patient Instructions Diet: Regular Diet as Tolerated Activity: As Tolerated Showering/Bathing: May Shower Notify Provider of: Fever (>101), Increased Pain Other/Special Instructions: 1. You were in the hospital for management of a febrile illness that we suspect was caused by anaplasmosis secondary to a deer tick bite. Your condition has been improving with antibiotic therapy and IV fluids. I do recommend that you complete a course of treatment for anaplasmosis. This will consist of taking doxycycline 100 mg twice daily with food for 38 more doses. Your first dose outside of the hospital will be due tonight. Taking the antibiotic with food can help decrease any stomach upset that may occur. This antibiotic can make your skin more sensitive to sunlight and significantly increase your risk for sunburn. I would strongly encourage you to either cover any potentially exposed skin with a hat and long clothing versus a high SPF sunscreen. You may have additional fevers over the next few days but the maximum temperature should be decreasing each day before resolving. - Discharge Plan *PRESCRIPTION DRUG MONITORING PROGRAM REVIEWED*: Not Applicable *COPY OF PRESCRIPTION DRUG MONITORING REPORT IN PATIENT AMY: Not Applicable Prescriptions/Med Rec: Doxycycline Hyclate 100 mg PO BID #38 capsule Home Medications: Home Meds Aspirin 81 mg PO DAILY 06/26/17 [History] Multivitamin [Multivitamins] 1 tab PO DAILY 06/26/17 [History] Propranolol HCl [Propranolol] 60 mg PO DAILY 02/21/20 [History] Doxycycline Hyclate 100 mg PO BID #38 capsule 02/22/20 [Rx] Oxygen Therapy Mode: Room Air Patient Handouts: Doxycycline tablets or capsules, Ehrlichiosis and Anaplasmosis Referrals: Tessy Johns PA [Primary Care Provider] - 02/25/20 10:00 am (Please arrive 15 minutes early to register for your appointment. YOUR APPOINTMENT WITH ENEDINA JOHNS IS AT THE [facility].) - Discharge Summary/Plan Comment DC Time >30 min.: No - Patient Data Vitals - Most Recent: Last Vital Signs Temp 37.4 C 02/22/20 07:50 Pulse 60 02/22/20 07:50 Resp 24 H 02/22/20 07:50 BP 139/67 02/22/20 07:50 Pulse Ox 94 L 02/22/20 07:50 Weight - Most Recent: 90.265 kg I&O - Last 24 hours: Intake & Output 02/21/20 02/22/20 02/22/20 22:59 06:59 14:59 Intake Total 1006 1037 Output Total 400 1350 Balance 606 -313 Lab Results - Last 24 hrs: Laboratory Results - last 24 hr 02/22/20 Range/Units 04:15 Sodium 140 (140-148) mmol/L Potassium 3.8 (3.6-5.2) mmol/L Chloride 107 (100-108) mmol/L Carbon Dioxide 24 (21-32) mmol/L Anion Gap 9.0 (5.0-14.0) mmol/L BUN 21 H (7-18) mg/dL Creatinine 1.1 (0.8-1.3) mg/dL Est Cr Clr Drug Dosing 51.56 mL/min Estimated GFR (MDRD) > 60 (>60) Glucose 98 (74-106) mg/dL Calcium 7.5 L (8.5-10.1) mg/dL DEON Results - Last 24 hrs: Microbiology 02/20/20 15:40 Aerobic Blood Culture - Preliminary Blood - Venous NO GROWTH AFTER 1 DAY Anaerobic Blood Culture - Preliminary NO GROWTH AFTER 1 DAY 02/20/20 15:45 Aerobic Blood Culture - Preliminary Blood - Venous - Lab Draw NO GROWTH AFTER 1 DAY Anaerobic Blood Culture - Preliminary NO GROWTH AFTER 1 DAY Med Orders - Current: Current Medications Acetaminophen (Tylenol) 650 mg PO Q4H PRN PRN Reason: Pain (Mild 1-3)/fever Last Admin: 02/22/20 03:27 Dose: 650 mg Documented by: Aspirin (Aspirin) 81 mg PO DAILY [facility] Last Admin: 02/22/20 10:10 Dose: 81 mg Documented by: Enoxaparin Sodium (Lovenox) 40 mg SUBCUT BEDTIME [facility] Last Admin: 02/21/20 20:39 Dose: 40 mg Documented by: Ceftriaxone Sodium 1 gm/ (Sodium Chloride) 50 mls @ 100 mls/hr IV DAILY@1800 [facility] Last Admin: 02/21/20 17:12 Dose: 100 mls/hr Documented by: Doxycycline Hyclate 100 mg/ (Sodium Chloride) 100 mls @ 100 mls/hr IV Q12H [facility] Last Admin: 02/22/20 07:58 Dose: 100 mls/hr Documented by: Sodium Chloride (Normal Saline) 1,000 mls @ 75 mls/hr IV ASDIRECTED [facility] Last Admin: 02/22/20 04:40 Dose: 75 mls/hr Documented by: Lactobacillus Rhamnosus (Culturelle) 1 cap PO BID [facility] Last Admin: 02/22/20 09:56 Dose: 1 cap Documented by: Melatonin (Melatonin) 9 mg PO BEDTIME [facility] Last Admin: 02/21/20 20:39 Dose: 9 mg Documented by: Ondansetron HCl (Zofran) 4 mg IV Q4H PRN PRN Reason: Nausea/Vomiting Polyethylene Glycol (Miralax) 17 gm PO DAILY PRN PRN Reason: Constipation Propranolol HCl (Inderal La) 60 mg PO DAILY [facility] Last Admin: 02/22/20 09:56 Dose: 60 mg Documented by: Sodium Chloride (Saline Flush) 10 ml FLUSH ASDIRECTED PRN PRN Reason: Keep Vein Open Discontinued Medications Acetaminophen (Tylenol) 650 mg PO NOW ONE Stop: 02/20/20 15:33 Last Admin: 02/20/20 15:52 Dose: 650 mg Documented by: Lactated Ringer's (Ringers, Lactated) 1,000 mls @ 999 mls/hr IV ASDIRECTED [facility] Last Admin: 02/20/20 15:50 Dose: 999 mls/hr Documented by: Lactated Ringer's (Ringers, Lactated) 1,000 mls @ 999 mls/hr IV BOLUS ONE Stop: 02/20/20 17:47 Last Admin: 02/20/20 16:50 Dose: 999 mls/hr Documented by: Doxycycline Hyclate 100 mg/ (Sodium Chloride) 100 mls @ 100 mls/hr IV ONETIME ONE Stop: 02/20/20 18:53 Last Admin: 02/20/20 18:09 Dose: 100 mls/hr Documented by: Sodium Chloride (Normal Saline) Confirm Administered Dose 100 mls @ as directed .ROUTE .STK-MED ONE Stop: 02/20/20 18:06 Last Admin: 02/20/20 20:50 Dose: Not Given Documented by: Sodium Chloride (Normal Saline) 1,000 mls @ 125 mls/hr IV ASDIRECTED [facility] Last Admin: 02/21/20 03:42 Dose: 125 mls/hr Documented by: Ibuprofen (Motrin) 400 mg PO ONETIME ONE Stop: 02/20/20 19:02 Last Admin: 02/20/20 19:46 Dose: 400 mg Documented by:
[2020-02-24 12:11] LABS: LYME IGG/IGM AB <0.91 ISR (0.00-0.90)
[2020-02-25 14:12] LABS: HGE IGG TITER Negative (Neg:<1:64); HGE IGM TITER Negative (Neg:<1:20)
== END 2020-02-22 13:30 | disposition home or self-care (01) | DRG 872 ==
LOC: JP.ED 13:50 → JP.MS 18:04
PROVIDERS: ADMIT Hospitalist; ATTEND Internal Medicine
DX: A41.9 Sepsis, unspecified organism (principal); W57.XXXD Bitten or stung by nonvenomous insect and other nonvenomous arthropods, subsequent encounter; A77.49 Other ehrlichiosis; A93.8 Other specified arthropod-borne viral fevers; H91.90 Unspecified hearing loss, unspecified ear; H54.7 Unspecified visual loss; Z20.828 Contact with and (suspected) exposure to other viral communicable diseases; E78.00 Pure hypercholesterolemia, unspecified; D45 Polycythemia vera; Z79.82 Long term (current) use of aspirin; Z79.899 Other long term (current) drug therapy; Z90.79 Acquired absence of other genital organ(s); Z87.891 Personal history of nicotine dependence
CPT/HCPCS: 36415; 71045 ×2; 71250; 80053; 81001; 83605; 84145; 84484; 85025; 86140; 87040 ×2; 96360; 96361; 99285; A9270; J7120 ×2; U0002; 80048; 86618; 86666; J0696; J1650; J3490; J7030; J7050

== ENCOUNTER 2020-02-25 15:14 | Inpatient (IN) | payer MEDICARE, BC ==
[2020-02-25] MEDS ORDERED: Acetaminophen 325 MG Tab PO PRN (15:15)
[2020-02-25] MEDS ORDERED: Ondansetron 4 MG/2 ML SDV IV PRN (15:15)
[2020-02-25] MEDS ORDERED: Sodium Chloride 0.9% 500 ML IV SCH ×2 (15:15→18:45)
[2020-02-25] MEDS ORDERED: Ondansetron 4 MG Tab.DIS PO PRN (15:15)
[2020-02-25] MEDS ORDERED: Magnesium Hydroxide 400 MG/5 ML Susp 30 ML Cup PO PRN (15:15)
[2020-02-25] MEDS ORDERED: Sodium Chloride 0.9% 10 ML Syringe FLUSH PRN (15:15)
[2020-02-25] MEDS ORDERED: LORazepam 2 MG/ML SDV IVPUSH PRN (15:15)
[2020-02-25] MEDS ORDERED: Melatonin 3 MG Tab PO PRN (15:15)
[2020-02-25] MEDS ORDERED: Benzonatate 100 MG Cap PO PRN (15:20)
[2020-02-25] MEDS ORDERED: guaiFENesin/Dextromethorphan 100-10 MG/5 ML Soln 10 ML Cup PO PRN (15:20)
--- NOTE | 2020-02-25 15:26 | PCM.HP.2 ---
H&P History of Present Illness - General Date of Service: 02/25/20 Admit Problem/Dx: Admission Diagnosis/Problem Admission Diagnosis/Problem Right upper lobe pneumonia Source of Information: Patient, Provider History Limitations: Reports: No Limitations - History of Present Illness Initial Comments - Free Text/Narative: CC: My breathing is bad HPI: Frank presented initially to the clinic with a progressive shortness of breath that has developed over the past 3 days. He also reports a loose but nonproductive cough. He has not had any chest pain or pleuritic chest pain. He has had both subjective fevers and chills at home but has not measured any temperatures. He is now short of breath trying to do anything though he was able to take a short walk this morning. The dyspnea has steadily been getting worse since hospital discharge on Saturday. His energy is down from baseline and he is weak compared to usual. He has not had much of an appetite. No complaints of abdominal pain or nausea. No change in bowel or bladder habits. No one else in the home is sick. He has not traveled anywhere. No lower extremity edema. Work-up in the emergency room revealed a white blood cell count of 19,000 which is slightly higher than his baseline in the 11-13,000 range. Chemistries were unremarkable. Chest x-ray suggested a right-sided infiltrate so a CT scan was obtained and this showed a multifocal pneumonia with the most impressive infiltrate in the right upper lobe. He was borderline hypoxic and had a significant tachypnea with respiratory rates in the 30s. He was sent to the hospital for direct admission. - Related Data Allergies/Adverse Reactions: Allergies Allergy/AdvReac Type Severity Reaction Status Date / Time No Known Allergies Allergy Verified 02/20/20 15:10 Home Medications: Home Meds Aspirin 81 mg PO DAILY 06/26/17 [History] Multivitamin [Multivitamins] 1 tab PO DAILY 06/26/17 [History] Propranolol HCl [Propranolol] 60 mg PO DAILY 02/21/20 [History] Doxycycline Hyclate 100 mg PO BID #38 capsule 02/22/20 [Rx] Past Medical History HEENT History: Reports: Hard of Hearing, Impaired Vision Cardiovascular History: Reports: High Cholesterol Respiratory History: Reports: None Gastrointestinal History: Reports: None Genitourinary History: Reports: None Musculoskeletal History: Reports: Other (See Below) Other Musculoskeletal History: R thumb open Fx. bilateral knee pain Neurological History: Reports: None Psychiatric History: Reports: None Endocrine/Metabolic History: Reports: None Hematologic History: Reports: None Immunologic History: Reports: None Oncologic (Cancer) History: Reports: None Dermatologic History: Reports: None - Past Surgical History Head Surgeries/Procedures: Reports: None HEENT Surgical History: Reports: None Cardiovascular Surgical History: Reports: None GI Surgical History: Reports: None Male Surgical History: Reports: Prostatectomy Musculoskeletal Surgical History: Reports: None Dermatological Surgical History: Reports: None Social & Family History - Family History Cardiac: Denies: CAD - Tobacco Use Smoking Status *Q: Unknown Ever Smoked - Caffeine Use Caffeine Use: Reports: None - Alcohol Use Alcohol Use History: Yes H&P Review of Systems - Review of Systems: Review Of Systems: See Below Free Text/Narrative: A complete 12 point review of systems was obtained. Pertinent positives and negatives are noted in the history of present illness. All other systems were reviewed and were negative except as noted. Exam - Exam Exam: See Below - Exam Quality Assessment: Supplemental Oxygen General: Alert, Oriented, Cooperative, Mild Distress HEENT: Conjunctiva Clear. No: Mucosa Moist & [place] (dry), Scleral Icterus Neck: Supple, Trachea Midline Lungs: Crackles (Right upper chest anteriorly and left mid chest posteriorly). No: Normal Respiratory Effort (Tachypnea), Wheezing Cardiovascular: Regular Rate, Regular Rhythm. No: Systolic Murmur GI/Abdominal Exam: Normal Bowel Sounds, Soft, Non-Tender, No Distention Back Exam: Normal Inspection, Full Range of Motion Extremities: No Pedal Edema. No: Increased Warmth Peripheral Pulses: 2+: Dorsalis Pedis (L), Dorsalis Pedis (R) Skin: Warm, Dry Neuro Extensive - Mental Status: Alert, Oriented x3, Nl Response to Commands Neuro Extensive - Motor, Sensory, Reflexes: No: Dysarthria, Abnormal Motor, Tremor Psychiatric: Alert, Normal Affect - Patient Data Lab Results Last 24 hrs: White blood cell count is 19,000 Creatinine 0.9 with a GFR greater than 60 Imaging Impressions Last 24 hrs: Chest x-ray-no images were available to review-Per report there is a large right-sided infiltrate CT scan of the chest-these images were personally reviewed and the radiologist interpretation noted-there is a multifocal pneumonia with the largest area of infiltrate being in the right upper lobe. There is a small right-sided effusion. There are small mediastinal lymph nodes which are thought to be reactive. Findings most consistent with infection with edema less likely. Sepsis Event Note - Focused Exam Date Exam was Performed: 02/25/20 Time Exam was Performed: 16:19 *Q Meaningful Use (ADM) - VTE Risk Assess *Q Each Risk Factor Represents 1 Point: Obesity ( BMI > 25 kg/m2), Serious lung disease including pneumonia Total Score 1 Point Risk Factors: 2 Each Risk Factor Represents 2 Points: None Total Score 2 Point Risk Factors: 0 Each Risk Factor Represents 3 Points: Age 75 Years or Greater Total Score 3 Point Risk Factors: 3 Each Risk Factor Represents 5 Points: None Total Score 5 Point Risk Factors: 0 Venous Thromboembolism Risk Factor Score *Q: 5 - Problem List (1) Right upper lobe pneumonia SNOMED Code(s): 545468804 ICD Code: J18.9 - PNEUMONIA, UNSPECIFIED ORGANISM Status: Acute Current Visit: Yes Qualifiers: Pneumonia type: due to unspecified organism Qualified Code(s): J18.9 - Pneumonia, unspecified organism (2) Acute respiratory failure with hypoxia SNOMED Code(s): 53743815, 083703158 ICD Code: J96.01 - ACUTE RESPIRATORY FAILURE WITH HYPOXIA Status: Acute Current Visit: Yes (3) Polycythemia vera SNOMED Code(s): 258055826 ICD Code: D45 - POLYCYTHEMIA VERA Status: Chronic Current Visit: No Problem List Initiated/Reviewed/Updated: Yes Orders Last 24hrs: Active Orders 24 hr Category Date Time Status Patient Status [ADT] Routine ADT 02/25/20 15:15 Ordered Antiembolic Devices [RC] .Routine Care 02/25/20 15:15 Ordered Cardiac Monitoring [RC] CONTINUOUS Care 02/25/20 15:16 Ordered Intake and Output [RC] QSHIFT Care 02/25/20 15:15 Ordered Notify Provider Vital Signs [RC] ASDIRECTED Care 02/25/20 15:15 Ordered Oxygen Therapy [RC] PRN Care 02/25/20 15:15 Ordered Peripheral IV Care [RC] . DIRECTED Care 02/25/20 15:17 Ordered Pulse Oximetry [RC] CONTINUOUS Care 02/25/20 15:16 Ordered Up With Assistance [RC] ASDIRECTED Care 02/25/20 15:15 Ordered VTE/DVT Education [RC] Per Unit Routine Care 02/25/20 15:15 Ordered Vital Signs [RC] Q2HR Care 02/25/20 15:15 Ordered Regular Diet [DIET] Diet 02/25/20 Dinner Ordered BASIC METABOLIC PANEL,BMP [CHEM] AM Lab 02/26/20 05:11 Ordered C-REACTIVE PROTEIN [CHEM] Routine Lab 02/25/20 15:15 Ordered CBC W/O DIFF,HEMOGRAM [HEME] AM Lab 02/26/20 05:11 Ordered CULTURE BLOOD [BC] Urgent Lab 02/25/20 15:18 Ordered CULTURE BLOOD [BC] Urgent Lab 02/25/20 15:18 Ordered CULTURE RESPIRATORY + SMEAR [RM] Routine Lab 02/25/20 15:18 Ordered MAGNESIUM [CHEM] Routine Lab 02/25/20 15:15 Ordered PROCALCITONIN [CHEM] Routine Lab 02/25/20 15:18 Ordered Acetaminophen [Tylenol] Med 02/25/20 15:15 Ordered 650 mg PO Q4H PRN Aspirin Med 02/26/20 09:00 Ordered 81 mg PO DAILY Benzonatate [Tessalon Perles] Med 02/25/20 15:20 Ordered 100 mg PO TID PRN Dextromethorphan/guaiFENesin [Robitussin DM] Med 02/25/20 15:20 Ordered 10 ml PO Q4H PRN Docusate Sodium/Sennosides [Senna Plus] Med 02/25/20 15:15 Ordered 1 tab PO BID PRN LORazepam [Ativan] Med 02/25/20 15:15 Ordered 0.5 mg IVPUSH Q4H PRN Lactobacillus Rhamnosus GG [Culturelle] Med 02/25/20 21:00 Ordered 1 cap PO BID Levofloxacin/Dextrose 5%-Water [Levaquin in D5W 750 MG/ Med 02/25/20 15:30 Ordered 150 ML] 750 mg Premix Bag 1 bag IV Q24H Magnesium Hydroxide [Milk of Magnesia] Med 02/25/20 15:15 Ordered 30 ml PO Q12H PRN Melatonin Med 02/25/20 15:15 Ordered 9 mg PO BEDTIME PRN Multivitamin [Multivitamins] Med 02/26/20 09:00 Ordered 1 tab PO DAILY Ondansetron [Zofran ODT] Med 02/25/20 15:15 Ordered 4 mg PO Q6H PRN Ondansetron [Zofran] Med 02/25/20 15:15 Ordered 4 mg IV Q6H PRN Piperacillin/Tazobactam [Zosyn] 3.375 gm Med 02/25/20 15:30 Ordered Sodium Chloride 0.9% [Normal Saline] 50 ml IV Q6H Propranolol [Inderal LA] Med 02/26/20 09:00 Ordered 60 mg PO DAILY Sodium Chloride 0.9% @ 125 MLS/HR (1000ml) Med 02/25/20 15:15 Ordered Sodium Chloride 0.9% [Normal Saline] 1,000 ml IV ASDIRECTED Sodium Chloride 0.9% [Normal Saline] 500 ml Med 02/25/20 15:15 Ordered IV .BOLUS Sodium Chloride 0.9% [Saline Flush] Med 02/25/20 15:15 Ordered 10 ml FLUSH ASDIRECTED PRN Blood Culture x2 Reflex Set [OM.PC] Urgent Oth 02/25/20 15:18 Ordered Peripheral IV Insertion Adult [OM.PC] Urgent Oth 02/25/20 15:15 Ordered RT Acapella [RESPCARE] Routine Oth 02/25/20 15:20 Ordered Sequential Compression Device [OM.PC] Routine Oth 02/25/20 15:15 Ordered Resuscitation Status Routine Resus Stat 02/25/20 15:15 Ordered Assessment/Plan Comment:: ASSESSMENT AND PLAN - Multifocal pneumonia-most impressive infiltrate in the right upper lobe. Complicated by acute respiratory failure with hypoxia. No fever at this time. White blood cell count is elevated at 19,000. He has been on antibiotics recently. He was in the hospital several days ago for febrile illness that was thought to be related to tickborne illness but likely was developing pneumonia. Chest x-ray and CT scan both revealed large right-sided infiltrates. He is tachypneic and mildly hypoxic. -Antibiotic coverage with Pip/Tazo and levofloxacin -COVID19 testing -CRP and procalcitonin -Blood cultures Polycythemia vera-laboratory counts are stable and acceptable at this time. Maintenance issues - - DVT prophylaxis -mechanical - GI prophylaxis -not indicated - Nutrition -regular - Reis catheter -not indicated CODE STATUS -full code Admission justification -this patient will be admitted for inpatient services and is medically appropriate meeting medical necessity for inpatient admission as outlined in my documentation. I reasonably expect the patient will require inpatient services that span a period time over 2 midnights. I reasonably expect this patient to be discharged or transferred within 96 hours after admission to the [facility]. Disposition -I would anticipate discharge home after the hospital stay Primary care provider - Giovanna Blair M.D. - Mortality Measure Prognosis:: Good
[2020-02-25] MEDS ORDERED: Levofloxacin/Dextrose 5%-Water 750 MG in Premix Bag 1 BAG IV SCH (16:00)
[2020-02-25] MEDS: Levofloxacin/Dextrose 5%-Water 750 MG in Premix Bag 1 BAG IV SCH (16:01)
[2020-02-25] MEDS: Sodium Chloride 0.9% 1,000 ML IV SCH ×2 (16:08→17:10)
[2020-02-25] MEDS: Piperacillin/Tazobactam/Dext 3.375 GM in Premix Bag 1 BAG IV SCH ×2 (17:10→21:59)
[2020-02-25] MEDS ORDERED: Benzocaine/Cetylpyridinium/Menthol Lozenge MUCMEM PRN (18:37)
[2020-02-25] MEDS: Lactobacillus Rhamnosus GG (Probiotic) Cap PO SCH (21:59)
[2020-02-26] MEDS: Sodium Chloride 0.9% 1,000 ML IV SCH (01:54)
[2020-02-26] MEDS: Piperacillin/Tazobactam/Dext 3.375 GM in Premix Bag 1 BAG IV SCH ×4 (04:26→22:24)
[2020-02-26] MEDS: Propranolol 60 MG Cap.ER PO SCH (08:23)
[2020-02-26] MEDS: Aspirin 81 MG Tab.Chew PO SCH (08:23)
[2020-02-26] MEDS: Multivitamins with Iron/Calcium/Folic Acid/Minerals Tab PO SCH (08:23)
[2020-02-26] MEDS: Lactobacillus Rhamnosus GG (Probiotic) Cap PO SCH ×2 (08:23→22:24)
[2020-02-26] MEDS ORDERED: methylPREDNISolone Sodium Succinate 125 MG/2 ML SDV IVPUSH ONE (11:00)
[2020-02-26] MEDS ORDERED: Sodium Chloride 0.9% 1,000 ML IV SCH (11:00)
[2020-02-26] MEDS: Albuterol 0.083% 2.5 MG/3 ML Neb Soln NEB SCH ×3 (11:16→22:24)
[2020-02-26] MEDS: Levofloxacin/Dextrose 5%-Water 750 MG in Premix Bag 1 BAG IV SCH (16:14)
--- NOTE | 2020-02-26 16:14 | PCM.PN ---
- General Info Date of Service: 02/26/20 Subjective Update: No acute events overnight. Still tachypneic but otherwise seems to be doing a little better. He feels less short of breath today. Still has a loose cough. No fevers overnight. He has been up and walking around in the room. He is weak and does not have much of an appetite. White count is slightly better today. Cultures are negative so far. Functional Status: Reports: Pain Controlled - Review of Systems General: Denies: Fever - Patient Data Vitals - Most Recent: Last Vital Signs Temp 37.0 C 02/26/20 10:00 Pulse 60 02/26/20 14:14 Resp 24 H 02/26/20 14:00 BP 135/62 02/26/20 14:00 Pulse Ox 91 L 02/26/20 15:00 Weight - Most Recent: 90.265 kg I&O - Last 24 Hours: Intake & Output 02/26/20 02/26/20 02/26/20 06:59 14:59 22:59 Intake Total 2423 Output Total 475 900 Balance 1948 -900 Lab Results Last 24 Hours: Laboratory Results - last 24 hr 02/25/20 02/25/20 02/26/20 Range/Units 15:18 17:00 05:00 WBC 16.4 H (4.5-11.0) K/uL RBC 3.86 L (4.30-5.90) M/uL Hgb 11.5 L (12.0-15.0) g/dL Hct 35.4 L (40.0-54.0) % MCV 92 (80-98) fL MCH 30 (27-31) pg MCHC 33 (32-36) % Plt Count 384 (150-400) K/uL Sodium (140-148) mmol/L Potassium (3.6-5.2) mmol/L Chloride (100-108) mmol/L Carbon Dioxide (21-32) mmol/L Anion Gap (5.0-14.0) mmol/L BUN (7-18) mg/dL Creatinine (0.8-1.3) mg/dL Est Cr Clr Drug Dosing mL/min Estimated GFR (MDRD) (>60) Glucose (74-106) mg/dL Calcium (8.5-10.1) mg/dL Procalcitonin 0.65 ng/mL SARS Virus RNA (PCR) Negative (NEGATIVE) 02/26/20 Range/Units 05:00 WBC (4.5-11.0) K/uL RBC (4.30-5.90) M/uL Hgb (12.0-15.0) g/dL Hct (40.0-54.0) % MCV (80-98) fL MCH (27-31) pg MCHC (32-36) % Plt Count (150-400) K/uL Sodium 144 (140-148) mmol/L Potassium 4.1 (3.6-5.2) mmol/L Chloride 112 H (100-108) mmol/L Carbon Dioxide 23 (21-32) mmol/L Anion Gap 13.1 (5.0-14.0) mmol/L BUN 18 (7-18) mg/dL Creatinine 1.0 (0.8-1.3) mg/dL Est Cr Clr Drug Dosing 56.71 mL/min Estimated GFR (MDRD) > 60 (>60) Glucose 123 H (74-106) mg/dL Calcium 7.8 L (8.5-10.1) mg/dL Procalcitonin ng/mL SARS Virus RNA (PCR) (NEGATIVE) Ramon Results Last 24 Hours: Microbiology 02/25/20 15:35 Aerobic Blood Culture - Preliminary Blood - Venous NO GROWTH AFTER 1 DAY Anaerobic Blood Culture - Preliminary NO GROWTH AFTER 1 DAY 02/25/20 15:28 Aerobic Blood Culture - Preliminary Blood - Venous - Lab Draw NO GROWTH AFTER 1 DAY Anaerobic Blood Culture - Preliminary NO GROWTH AFTER 1 DAY Med Orders - Current: Current Medications Acetaminophen (Tylenol) 650 mg PO Q4H PRN PRN Reason: Pain (Mild 1-3)/fever Albuterol (Proventil Neb Soln) 2.5 mg NEB QIDRT [facility] Last Admin: 02/26/20 14:14 Dose: 2.5 mg Documented by: Aspirin (Aspirin) 81 mg PO DAILY [facility] Last Admin: 02/26/20 08:23 Dose: 81 mg Documented by: Benzocaine/Menthol (Cepacol Sore Throat) 1 lozenge MUCMEM Q2H PRN PRN Reason: cough/sore throat Last Admin: 02/25/20 19:26 Dose: 1 pack Documented by: Benzonatate (Tessalon Perles) 100 mg PO TID PRN PRN Reason: Cough Guaifenesin/Dextromethorphan (Robitussin Dm) 10 ml PO Q4H PRN PRN Reason: Cough Piperacillin/Tazobactam/ (Dextrose 3.375 gm/ Premix) 50 mls @ 100 mls/hr IV Q6H [facility] Last Admin: 02/26/20 15:19 Dose: 100 mls/hr Documented by: Levofloxacin/Dextrose 750 mg/ (Premix) 150 mls @ 100 mls/hr IV Q24H [facility] Last Admin: 02/25/20 16:01 Dose: 100 mls/hr Documented by: Sodium Chloride (Normal Saline) 1,000 mls @ 25 mls/hr IV ASDIRECTED [facility] Last Admin: 02/26/20 11:00 Dose: 25 mls/hr Documented by: Lactobacillus Rhamnosus (Culturelle) 1 cap PO BID [facility] Last Admin: 02/26/20 08:23 Dose: 1 cap Documented by: Lorazepam (Ativan) 0.5 mg IVPUSH Q4H PRN PRN Reason: Nausea/Vomiting Magnesium Hydroxide (Milk Of Magnesia) 30 ml PO Q12H PRN PRN Reason: Constipation Melatonin (Melatonin) 9 mg PO BEDTIME PRN PRN Reason: sleep Methylprednisolone Sodium Succinate (Solu-Medrol) 62.5 mg IVPUSH Q8H [facility] Multivitamins/Minerals (Thera M Plus) 1 tab PO DAILY [facility] Last Admin: 02/26/20 08:23 Dose: 1 tab Documented by: Ondansetron HCl (Zofran) 4 mg IV Q6H PRN PRN Reason: Nausea/Vomiting Ondansetron HCl (Zofran Odt) 4 mg PO Q6H PRN PRN Reason: Nausea able to take PO Propranolol HCl (Inderal La) 60 mg PO DAILY [facility] Last Admin: 02/26/20 08:23 Dose: 60 mg Documented by: Senna/Docusate Sodium (Senna Plus) 1 tab PO BID PRN PRN Reason: Constipation Sodium Chloride (Saline Flush) 10 ml FLUSH ASDIRECTED PRN PRN Reason: Keep Vein Open Last Admin: 02/25/20 16:06 Dose: 10 ml Documented by: Discontinued Medications Sodium Chloride (Normal Saline) 1,000 mls @ 125 mls/hr IV ASDIRECTED [facility] Last Admin: 02/26/20 01:54 Dose: 125 mls/hr Documented by: Sodium Chloride (Normal Saline) 500 mls @ 999 mls/hr IV .[facility] Last Admin: 02/25/20 19:22 Dose: 999 mls/hr Documented by: Sodium Chloride (Normal Saline) 500 mls @ 500 mls/hr IV ASDIRECTED [facility] Stop: 02/25/20 19:46 Last Admin: 02/25/20 19:22 Dose: 500 mls/hr Documented by: Methylprednisolone Sodium Succinate (Solu-Medrol) 125 mg IVPUSH ONETIME ONE Stop: 02/26/20 11:01 Last Admin: 02/26/20 11:12 Dose: 125 mg Documented by: - Exam Quality Assessment: Supplemental Oxygen General: Alert, Oriented, Cooperative, No Acute Distress Lungs: Normal Respiratory Effort, Crackles (Mild throughout), Wheezing (Moderate expiratory wheezing diffuse) Cardiovascular: Regular Rate, Regular Rhythm GI/Abdominal Exam: Soft, No Distention Extremities: No Pedal Edema. No: Increased Warmth Skin: Warm, Dry Psy/Mental Status: Alert, Normal Affect Sepsis Event Note - Evaluation Sepsis Screening Result: Sepsis Risk - Focused Exam Vital Signs: Vital Signs Temp Pulse Resp BP Pulse Ox 02/26/20 15:00 91 L 02/26/20 14:14 60 02/26/20 14:00 24 H 135/62 90 L 02/26/20 12:00 31 H 158/66 H 94 L 02/26/20 11:17 58 L 02/26/20 10:00 37.0 C 22 H 129/62 94 L 02/26/20 08:00 35 H 179/88 H 90 L 02/26/20 07:00 36.6 C 65 30 H 136/65 91 L Date Exam was Performed: 02/26/20 Time Exam was Performed: 16:11 - Problem List & Annotations (1) Right upper lobe pneumonia SNOMED Code(s): 931761978 Code(s): J18.9 - PNEUMONIA, UNSPECIFIED ORGANISM Status: Acute Current Visit: Yes Qualifiers: Pneumonia type: due to unspecified organism Qualified Code(s): J18.9 - Pneumonia, unspecified organism (2) Acute respiratory failure with hypoxia SNOMED Code(s): 88056506, 656014886 Code(s): J96.01 - ACUTE RESPIRATORY FAILURE WITH HYPOXIA Status: Acute Current Visit: Yes (3) Polycythemia vera SNOMED Code(s): 701095478 Code(s): D45 - POLYCYTHEMIA VERA Status: Chronic Current Visit: No - Problem List Review Problem List Initiated/Reviewed/Updated: Yes - My Orders Last 24 Hours: My Active Orders 02/25/20 15:15 Patient Status [ADT] Routine Antiembolic Devices [RC] .Routine Intake and Output [RC] QSHIFT Notify Provider Vital Signs [RC] ASDIRECTED Oxygen Therapy [RC] PRN Up With Assistance [RC] ASDIRECTED VTE/DVT Education [RC] Per Unit Routine Vital Signs [RC] Q2HR Acetaminophen [Tylenol] 650 mg PO Q4H PRN Docusate Sodium/Sennosides [Senna Plus] 1 tab PO BID PRN LORazepam [Ativan] 0.5 mg IVPUSH Q4H PRN Magnesium Hydroxide [Milk of Magnesia] 30 ml PO Q12H PRN Melatonin 9 mg PO BEDTIME PRN Ondansetron [Zofran ODT] 4 mg PO Q6H PRN Ondansetron [Zofran] 4 mg IV Q6H PRN Sodium Chloride 0.9% [Saline Flush] 10 ml FLUSH ASDIRECTED PRN Peripheral IV Insertion Adult [OM.PC] Urgent Sequential Compression Device [OM.PC] Routine Resuscitation Status Routine 02/25/20 15:16 Cardiac Monitoring [RC] Q6H Pulse Oximetry [RC] CONTINUOUS 02/25/20 15:17 Peripheral IV Care [RC] Q12H 02/25/20 15:18 Blood Culture x2 Reflex Set [OM.PC] Urgent 02/25/20 15:20 Benzonatate [Tessalon Perles] 100 mg PO TID PRN Dextromethorphan/guaiFENesin [Robitussin DM] 10 ml PO Q4H PRN RT Acapella [RESPCARE] Routine 02/25/20 15:28 CULTURE BLOOD [BC] Urgent 02/25/20 15:35 CULTURE BLOOD [BC] Urgent 02/25/20 16:00 Piperacillin/Tazobactam/Dext [Zosyn in Dextrose Iso-Osmotic 3.375 GM] 3.375 gm Premix Bag 1 bag IV Q6H 02/25/20 16:30 Levofloxacin/Dextrose 5%-Water [Levaquin in D5W 750 MG/150 ML] 750 mg Premix Bag 1 bag IV Q24H 02/25/20 Dinner Regular Diet [DIET] 02/25/20 18:37 Benzocaine/Cetylpyrd/Menthol [Cepacol Sore Throat] 1 lozenge MUCMEM Q2H PRN 02/25/20 21:00 Lactobacillus Rhamnosus GG [Culturelle] 1 cap PO BID 02/26/20 09:00 Aspirin 81 mg PO DAILY Multivitamins w-Iron/Ca/FA/Min [Thera M Plus] 1 tab PO DAILY Propranolol [Inderal LA] 60 mg PO DAILY 02/26/20 10:48 RT Aerosol Therapy [RC] ASDIRECTED 02/26/20 11:00 Albuterol [Proventil Neb Soln] 2.5 mg NEB QIDRT Sodium Chloride 0.9% [Normal Saline] 1,000 ml IV ASDIRECTED 02/26/20 20:00 methylPREDNISolone Sod Succ [Solu-MEDROL] 62.5 mg IVPUSH Q8H 02/27/20 05:00 BASIC METABOLIC PANEL,BMP [CHEM] Timed CBC W/O DIFF,HEMOGRAM [HEME] Timed (1) CRP [C-REACTIVE PROTEIN] [CHEM] Timed - Plan Plan:: ASSESSMENT AND PLAN - Multifocal pneumonia-most impressive infiltrate in the right upper lobe. Complicated by acute respiratory failure with hypoxia. Still no fevers. Stable to slightly improved. Still needing about 3 L of supplemental oxygen. COVID testing was negative. He does have some wheezing today suggesting a component of reactive airway disease. -Antibiotic coverage with Pip/Tazo and levofloxacin -IV steroids -Supplement oxygen as needed -Acapella -Follow-up blood cultures Polycythemia vera-laboratory counts are stable and acceptable at this time. Maintenance issues - - DVT prophylaxis -mechanical - GI prophylaxis -not indicated - Nutrition -regular Disposition -I would anticipate discharge home after the hospital stay Primary care provider - Giovanna Blair M.D.
[2020-02-26] MEDS: methylPREDNISolone Sodium Succinate 125 MG/2 ML SDV IVPUSH SCH (20:41)
[2020-02-27] MEDS: methylPREDNISolone Sodium Succinate 125 MG/2 ML SDV IVPUSH SCH (05:03)
[2020-02-27] MEDS: Piperacillin/Tazobactam/Dext 3.375 GM in Premix Bag 1 BAG IV SCH ×4 (05:03→22:07)
[2020-02-27] MEDS: Albuterol 0.083% 2.5 MG/3 ML Neb Soln NEB SCH ×4 (07:26→20:32)
[2020-02-27] MEDS: Propranolol 60 MG Cap.ER PO SCH (08:27)
[2020-02-27] MEDS: Multivitamins with Iron/Calcium/Folic Acid/Minerals Tab PO SCH (08:27)
[2020-02-27] MEDS: Lactobacillus Rhamnosus GG (Probiotic) Cap PO SCH ×2 (08:27→20:32)
[2020-02-27] MEDS: Aspirin 81 MG Tab.Chew PO SCH (08:27)
[2020-02-27] MEDS ORDERED: predniSONE 20 MG Tab PO ONE (09:57)
--- NOTE | 2020-02-27 09:59 | PCM.PN ---
- General Info Date of Service: 02/27/20 Subjective Update: No acute events overnight. Shortness of breath is slightly better today. Respiratory rate is down below 20. Still has a loose cough. No wheezing today. Appetite is finally starting to get better. No fevers. Cultures negative. White blood cell count slightly higher today after steroids were initiated yesterday. Functional Status: Reports: Pain Controlled, Tolerating Diet - Review of Systems General: Denies: Fever Pulmonary: Reports: Shortness of Breath - Patient Data Vitals - Most Recent: Last Vital Signs Temp 36.0 C L 02/27/20 08:00 Pulse 79 02/27/20 08:00 Resp 16 02/27/20 08:00 BP 158/70 H 02/27/20 08:00 Pulse Ox 94 L 02/27/20 08:00 Weight - Most Recent: 90.265 kg I&O - Last 24 Hours: Intake & Output 02/26/20 02/27/20 02/27/20 22:59 06:59 14:59 Intake Total 400 100 580 Output Total 1500 400 Balance -1100 -300 580 Lab Results Last 24 Hours: Laboratory Results - last 24 hr 02/27/20 02/27/20 Range/Units 05:00 05:00 WBC 21.4 H (4.5-11.0) K/uL RBC 3.95 L (4.30-5.90) M/uL Hgb 11.6 L (12.0-15.0) g/dL Hct 36.4 L (40.0-54.0) % MCV 92 (80-98) fL MCH 29 (27-31) pg MCHC 32 (32-36) % Plt Count 477 H (150-400) K/uL Sodium 143 (140-148) mmol/L Potassium 4.0 (3.6-5.2) mmol/L Chloride 110 H (100-108) mmol/L Carbon Dioxide 26 (21-32) mmol/L Anion Gap 11.0 (5.0-14.0) mmol/L BUN 16 (7-18) mg/dL Creatinine 0.9 (0.8-1.3) mg/dL Est Cr Clr Drug Dosing 63.33 mL/min Estimated GFR (MDRD) > 60 (>60) Glucose 188 H (74-106) mg/dL Calcium 8.3 L (8.5-10.1) mg/dL C-Reactive Protein 3.59 H (0.0-0.3) mg/dL Ramon Results Last 24 Hours: Microbiology 02/25/20 15:35 Aerobic Blood Culture - Preliminary Blood - Venous NO GROWTH AFTER 1 DAY Anaerobic Blood Culture - Preliminary NO GROWTH AFTER 1 DAY 02/25/20 15:28 Aerobic Blood Culture - Preliminary Blood - Venous - Lab Draw NO GROWTH AFTER 1 DAY Anaerobic Blood Culture - Preliminary NO GROWTH AFTER 1 DAY Med Orders - Current: Current Medications Acetaminophen (Tylenol) 650 mg PO Q4H PRN PRN Reason: Pain (Mild 1-3)/fever Albuterol (Proventil Neb Soln) 2.5 mg NEB QIDRT [facility] Last Admin: 02/27/20 07:26 Dose: 2.5 mg Documented by: Aspirin (Aspirin) 81 mg PO DAILY [facility] Last Admin: 02/27/20 08:27 Dose: 81 mg Documented by: Benzocaine/Menthol (Cepacol Sore Throat) 1 lozenge MUCMEM Q2H PRN PRN Reason: cough/sore throat Last Admin: 02/25/20 19:26 Dose: 1 pack Documented by: Benzonatate (Tessalon Perles) 100 mg PO TID PRN PRN Reason: Cough Guaifenesin/Dextromethorphan (Robitussin Dm) 10 ml PO Q4H PRN PRN Reason: Cough Piperacillin/Tazobactam/ (Dextrose 3.375 gm/ Premix) 50 mls @ 100 mls/hr IV Q6H [facility] Last Admin: 02/27/20 05:03 Dose: 100 mls/hr Documented by: Levofloxacin/Dextrose 750 mg/ (Premix) 150 mls @ 100 mls/hr IV Q24H [facility] Last Admin: 02/26/20 16:14 Dose: 100 mls/hr Documented by: Sodium Chloride (Normal Saline) 1,000 mls @ 25 mls/hr IV ASDIRECTED [facility] Last Admin: 02/26/20 11:00 Dose: 25 mls/hr Documented by: Lactobacillus Rhamnosus (Culturelle) 1 cap PO BID [facility] Last Admin: 02/27/20 08:27 Dose: 1 cap Documented by: Lorazepam (Ativan) 0.5 mg IVPUSH Q4H PRN PRN Reason: Nausea/Vomiting Magnesium Hydroxide (Milk Of Magnesia) 30 ml PO Q12H PRN PRN Reason: Constipation Melatonin (Melatonin) 9 mg PO BEDTIME PRN PRN Reason: sleep Methylprednisolone Sodium Succinate (Solu-Medrol) 62.5 mg IVPUSH Q8H [facility] Last Admin: 02/27/20 05:03 Dose: 62.5 mg Documented by: Multivitamins/Minerals (Thera M Plus) 1 tab PO DAILY [facility] Last Admin: 02/27/20 08:27 Dose: 1 tab Documented by: Ondansetron HCl (Zofran) 4 mg IV Q6H PRN PRN Reason: Nausea/Vomiting Ondansetron HCl (Zofran Odt) 4 mg PO Q6H PRN PRN Reason: Nausea able to take PO Propranolol HCl (Inderal La) 60 mg PO DAILY [facility] Last Admin: 02/27/20 08:27 Dose: 60 mg Documented by: Senna/Docusate Sodium (Senna Plus) 1 tab PO BID PRN PRN Reason: Constipation Sodium Chloride (Saline Flush) 10 ml FLUSH ASDIRECTED PRN PRN Reason: Keep Vein Open Last Admin: 02/25/20 16:06 Dose: 10 ml Documented by: Discontinued Medications Sodium Chloride (Normal Saline) 1,000 mls @ 125 mls/hr IV ASDIRECTED [facility] Last Admin: 02/26/20 01:54 Dose: 125 mls/hr Documented by: Sodium Chloride (Normal Saline) 500 mls @ 999 mls/hr IV .BOLUS [facility] Last Admin: 02/25/20 19:22 Dose: 999 mls/hr Documented by: Sodium Chloride (Normal Saline) 500 mls @ 500 mls/hr IV ASDIRECTED [facility] Stop: 02/25/20 19:46 Last Admin: 02/25/20 19:22 Dose: 500 mls/hr Documented by: Methylprednisolone Sodium Succinate (Solu-Medrol) 125 mg IVPUSH ONETIME ONE Stop: 02/26/20 11:01 Last Admin: 02/26/20 11:12 Dose: 125 mg Documented by: - Exam Quality Assessment: Supplemental Oxygen General: Alert, Oriented, Cooperative, No Acute Distress Lungs: Clear to Auscultation, Normal Respiratory Effort. No: Wheezing Cardiovascular: Regular Rate, Regular Rhythm GI/Abdominal Exam: Soft, No Distention Extremities: No Pedal Edema. No: Increased Warmth Skin: Warm, Dry Psy/Mental Status: Alert, Normal Affect Sepsis Event Note - Evaluation Sepsis Screening Result: No Definite Risk - Focused Exam Vital Signs: Vital Signs Temp Pulse Resp BP Pulse Ox Pulse Ox 02/27/20 08:00 36.0 C L 79 16 158/70 H 94 L 02/27/20 07:26 58 L 92 L 02/27/20 04:00 29 H 93 L 02/27/20 02:00 36.3 C 22 H 172/79 H 92 L 02/27/20 00:00 21 H 93 L 02/26/20 22:00 33 H 148/71 H 93 L Date Exam was Performed: 02/27/20 Time Exam was Performed: 12:55 - Problem List & Annotations (1) Right upper lobe pneumonia SNOMED Code(s): 694652513 Code(s): J18.9 - PNEUMONIA, UNSPECIFIED ORGANISM Status: Acute Current Visit: Yes Qualifiers: Pneumonia type: due to unspecified organism Qualified Code(s): J18.9 - Pneumonia, unspecified organism (2) Acute respiratory failure with hypoxia SNOMED Code(s): 59952769, 375518406 Code(s): J96.01 - ACUTE RESPIRATORY FAILURE WITH HYPOXIA Status: Acute Current Visit: Yes (3) Polycythemia vera SNOMED Code(s): 157132472 Code(s): D45 - POLYCYTHEMIA VERA Status: Chronic Current Visit: No - Problem List Review Problem List Initiated/Reviewed/Updated: Yes - My Orders Last 24 Hours: My Active Orders 02/26/20 09:00 Aspirin 81 mg PO DAILY Multivitamins w-Iron/Ca/FA/Min [Thera M Plus] 1 tab PO DAILY Propranolol [Inderal LA] 60 mg PO DAILY 02/26/20 10:48 RT Aerosol Therapy [RC] ASDIRECTED 02/26/20 11:00 Albuterol [Proventil Neb Soln] 2.5 mg NEB QIDRT Sodium Chloride 0.9% [Normal Saline] 1,000 ml IV ASDIRECTED 02/26/20 20:00 methylPREDNISolone Sod Succ [Solu-MEDROL] 62.5 mg IVPUSH Q8H 02/27/20 09:57 predniSONE 20 mg PO BIDAC ONE 02/27/20 09:58 Transfer Patient (Change bed) [ADT] Routine 02/28/20 05:00 BASIC METABOLIC PANEL,BMP [CHEM] Timed CBC W/O DIFF,HEMOGRAM [HEME] Timed (1) - Plan Plan:: ASSESSMENT AND PLAN - Multifocal pneumonia-most impressive infiltrate in the right upper lobe. Complicated by acute respiratory failure with hypoxia. Slowly getting better. No fevers. Wheezing has resolved. -Antibiotic coverage with Pip/Tazo and levofloxacin, anticipate de-escalation tomorrow -Transition steroids to prednisone -Supplement oxygen as needed -Acapella -Follow-up blood cultures Polycythemia vera-laboratory counts are stable and acceptable at this time. Maintenance issues - - DVT prophylaxis -mechanical - GI prophylaxis -not indicated - Nutrition -regular Disposition -I would anticipate discharge home after the hospital stay. Patient is stable and safe for transfer out of the intensive care unit today. Primary care provider - Giovanna Blair M.D.
[2020-02-27] MEDS: Levofloxacin/Dextrose 5%-Water 750 MG in Premix Bag 1 BAG IV SCH (17:21)
[2020-02-28] MEDS: Piperacillin/Tazobactam/Dext 3.375 GM in Premix Bag 1 BAG IV SCH ×2 (04:33→11:14)
[2020-02-28] MEDS: Albuterol 0.083% 2.5 MG/3 ML Neb Soln NEB SCH ×2 (07:48→11:14)
[2020-02-28] MEDS: Lactobacillus Rhamnosus GG (Probiotic) Cap PO SCH (08:17)
[2020-02-28] MEDS: Aspirin 81 MG Tab.Chew PO SCH (08:17)
[2020-02-28] MEDS: Propranolol 60 MG Cap.ER PO SCH (08:17)
[2020-02-28] MEDS: Multivitamins with Iron/Calcium/Folic Acid/Minerals Tab PO SCH (08:17)
--- NOTE | 2020-02-28 10:33 | PCM.DCSUM1 ---
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 He was noted to have significant shortness of breath and work-up revealed a large right-sided pneumonia. He was admitted for management of bilateral but mostly right-sided pneumonia with hypoxic respiratory failure. Diagnosis: Stroke: No - Discharge Data Discharge Date: 02/28/20 Discharge Disposition: Home, Self-Care 01 Condition: Good - Referral to Home Health Primary Care Physician: PCP None - Discharge Diagnosis/Problem(s) (1) Right upper lobe pneumonia SNOMED Code(s): 705555761 ICD Code: J18.9 - PNEUMONIA, UNSPECIFIED ORGANISM Status: Acute Qualifiers: Pneumonia type: due to unspecified organism Qualified Code(s): J18.9 - Pn eumonia, unspecified organism (2) Acute respiratory failure with hypoxia SNOMED Code(s): 75927819, 759632450 ICD Code: J96.01 - ACUTE RESPIRATORY FAILURE WITH HYPOXIA Status: Acute (3) Polycythemia vera SNOMED Code(s): 401328893 ICD Code: D45 - POLYCYTHEMIA VERA Status: Chronic - Patient Summary/Data Hospital Course: Frank presented initially to the clinic for routine follow-up. While in the clinic he was noted to be tachypneic and borderline hypoxic. A chest x-ray was obtained and did show a right-sided infiltrate. He was sent for CT scan which showed several different areas of infiltrate with the most impressive in the right upper lobe. With the tachypnea and borderline hypoxia he was sent to the hospital for further management. He was initially admitted to the intensive care unit because of the size of the infiltrate and his respiratory rate. We started him on levofloxacin and Pip/Tazo. We did obtain some blood cultures. Over the next 24 hours we saw no impressive change in his respiratory status. The next day he was wheezing some so we did start steroids. Laboratory studies were fairly stable. Respiratory rate was down slightly. Over the next 24 hours we saw a slight improvement with an improvement in his respiratory rate 10 decrease in his heart rate. His wheezing resolved within 24 hours of starting the steroids. Over the next 24 hours we saw more significant improvement. We are able to wean down the oxygen and eventually wean the oxygen off. He has been up and walking around and feels pretty well. He has not had any fever since admission. His white count has been higher the last 2 days but I suspect this is a combination of his polycythemia and the steroids. He feels well enough to go home at this point and I think he is safe to go home. His cultures have all been negative. He has been transitioned to only levofloxacin and I plan to continue this after his hospital discharge. I did encourage him to stop taking the doxycycline since our focus has now shifted from potentially a tickborne illness to a bilateral but mostly right-sided pneumonia. - Patient Instructions Diet: Regular Diet as Tolerated Activity: As Tolerated Driving: May Drive Today Showering/Bathing: May Shower Notify Provider of: Fever, Increased Pain Other/Special Instructions: 1. You were in the hospital for management of bilateral but mostly right upper lobe pneumonia. We did not determine a causative organism for the infection. Your condition has been improving with antibiotic therapy. I do recommend ongoing antibiotic therapy after hospital discharge. Please take levofloxacin 750 mg once daily in the early afternoon. Your first dose outside of the hospital will be due on Saturday. The testing for tickborne illness has returned negative. You may stop taking the doxycycline that was prescribed at the time of your last hospital discharge. 2. Continue your other home medications as previously prescribed. 3. Follow up if your symptoms do not continue to get better or if they get worse - Discharge Plan *PRESCRIPTION DRUG MONITORING PROGRAM REVIEWED*: Not Applicable *COPY OF PRESCRIPTION DRUG MONITORING REPORT IN PATIENT AMY: Not Applicable Prescriptions/Med Rec: Levofloxacin 750 mg PO PCDINNER #4 tablet Home Medications: Home Meds Aspirin 81 mg PO DAILY 06/26/17 [History] Multivitamin [Multivitamins] 1 tab PO DAILY 06/26/17 [History] Propranolol HCl [Propranolol] 60 mg PO DAILY 02/21/20 [History] Doxycycline Hyclate 100 mg PO BID #38 capsule 02/22/20 [Rx] Levofloxacin 750 mg PO PCDINNER #4 tablet 02/28/20 [Rx] Oxygen Therapy Mode: Room Air Patient Handouts: Levofloxacin tablets, Community-Acquired Pneumonia, Adult Referrals: Tessy Johns PA [Advanced RN Practitioner] - (f/u as needed if symptoms do not continue to get better if they get worse ) - Discharge Summary/Plan Comment DC Time >30 min.: No - Patient Data Vitals - Most Recent: Last Vital Signs Temp 36.5 C 02/28/20 08:00 Pulse 66 02/28/20 08:00 Resp 18 02/28/20 08:00 BP 159/79 H 02/28/20 08:00 Pulse Ox 94 L 02/28/20 08:00 Weight - Most Recent: 90.265 kg I&O - Last 24 hours: Intake & Output 02/27/20 02/28/20 02/28/20 22:59 06:59 14:59 Intake Total 200 100 Balance 200 100 Lab Results - Last 24 hrs: Laboratory Results - last 24 hr 02/28/20 02/28/20 Range/Units 04:10 04:10 WBC 26.2 H (4.5-11.0) K/uL RBC 3.96 L (4.30-5.90) M/uL Hgb 11.9 L (12.0-15.0) g/dL Hct 36.6 L (40.0-54.0) % MCV 92 (80-98) fL MCH 30 (27-31) pg MCHC 33 (32-36) % Plt Count 526 H (150-400) K/uL Sodium 143 (140-148) mmol/L Potassium 4.4 (3.6-5.2) mmol/L Chloride 110 H (100-108) mmol/L Carbon Dioxide 28 (21-32) mmol/L Anion Gap 9.4 (5.0-14.0) mmol/L BUN 20 H (7-18) mg/dL Creatinine 1.1 (0.8-1.3) mg/dL Est Cr Clr Drug Dosing 51.82 mL/min Estimated GFR (MDRD) > 60 (>60) Glucose 130 H (74-106) mg/dL Calcium 8.0 L (8.5-10.1) mg/dL DEON Results - Last 24 hrs: Microbiology 02/25/20 15:28 Aerobic Blood Culture - Preliminary Blood - Venous - Lab Draw NO GROWTH AFTER 2 DAYS Anaerobic Blood Culture - Preliminary NO GROWTH AFTER 2 DAYS 02/25/20 15:35 Aerobic Blood Culture - Preliminary Blood - Venous NO GROWTH AFTER 2 DAYS Anaerobic Blood Culture - Preliminary NO GROWTH AFTER 2 DAYS Med Orders - Current: Current Medications Acetaminophen (Tylenol) 650 mg PO Q4H PRN PRN Reason: Pain (Mild 1-3)/fever Albuterol (Proventil Neb Soln) 2.5 mg NEB QIDRT [facility] Last Admin: 02/28/20 07:48 Dose: 2.5 mg Documented by: Aspirin (Aspirin) 81 mg PO DAILY [facility] Last Admin: 02/28/20 08:17 Dose: 81 mg Documented by: Benzocaine/Menthol (Cepacol Sore Throat) 1 lozenge MUCMEM Q2H PRN PRN Reason: cough/sore throat Last Admin: 02/25/20 19:26 Dose: 1 pack Documented by: Benzonatate (Tessalon Perles) 100 mg PO TID PRN PRN Reason: Cough Guaifenesin/Dextromethorphan (Robitussin Dm) 10 ml PO Q4H PRN PRN Reason: Cough Piperacillin/Tazobactam/ (Dextrose 3.375 gm/ Premix) 50 mls @ 100 mls/hr IV Q6H [facility] Last Admin: 02/28/20 04:33 Dose: 100 mls/hr Documented by: Sodium Chloride (Normal Saline) 1,000 mls @ 25 mls/hr IV ASDIRECTED [facility] Last Admin: 02/26/20 11:00 Dose: 25 mls/hr Documented by: Lactobacillus Rhamnosus (Culturelle) 1 cap PO BID [facility] Last Admin: 02/28/20 08:17 Dose: 1 cap Documented by: Levofloxacin (Levaquin) 750 mg PO ONETIME ONE Stop: 02/28/20 12:01 Lorazepam (Ativan) 0.5 mg IVPUSH Q4H PRN PRN Reason: Nausea/Vomiting Magnesium Hydroxide (Milk Of Magnesia) 30 ml PO Q12H PRN PRN Reason: Constipation Melatonin (Melatonin) 9 mg PO BEDTIME PRN PRN Reason: sleep Multivitamins/Minerals (Thera M Plus) 1 tab PO DAILY [facility] Last Admin: 02/28/20 08:17 Dose: 1 tab Documented by: Ondansetron HCl (Zofran) 4 mg IV Q6H PRN PRN Reason: Nausea/Vomiting Ondansetron HCl (Zofran Odt) 4 mg PO Q6H PRN PRN Reason: Nausea able to take PO Propranolol HCl (Inderal La) 60 mg PO DAILY [facility] Last Admin: 02/28/20 08:17 Dose: 60 mg Documented by: Senna/Docusate Sodium (Senna Plus) 1 tab PO BID PRN PRN Reason: Constipation Sodium Chloride (Saline Flush) 10 ml FLUSH ASDIRECTED PRN PRN Reason: Keep Vein Open Last Admin: 02/25/20 16:06 Dose: 10 ml Documented by: Discontinued Medications Sodium Chloride (Normal Saline) 1,000 mls @ 125 mls/hr IV ASDIRECTED [facility] Last Admin: 02/26/20 01:54 Dose: 125 mls/hr Documented by: Sodium Chloride (Normal Saline) 500 mls @ 999 mls/hr IV .BOLUS [facility] Last Admin: 02/25/20 19:22 Dose: 999 mls/hr Documented by: Levofloxacin/Dextrose 750 mg/ (Premix) 150 mls @ 100 mls/hr IV Q24H [facility] Last Admin: 02/27/20 17:21 Dose: 100 mls/hr Documented by: Sodium Chloride (Normal Saline) 500 mls @ 500 mls/hr IV ASDIRECTED [facility] Stop: 02/25/20 19:46 Last Admin: 02/25/20 19:22 Dose: 500 mls/hr Documented by: Methylprednisolone Sodium Succinate (Solu-Medrol) 125 mg IVPUSH ONETIME ONE Stop: 02/26/20 11:01 Last Admin: 02/26/20 11:12 Dose: 125 mg Documented by: Methylprednisolone Sodium Succinate (Solu-Medrol) 62.5 mg IVPUSH Q8H [facility] Last Admin: 02/27/20 05:03 Dose: 62.5 mg Documented by: Prednisone (Prednisone) 20 mg PO BIDAC ONE Stop: 02/27/20 09:58 Last Admin: 02/27/20 10:28 Dose: 20 mg Documented by:
[2020-02-28] MEDS ORDERED: Levofloxacin 500 MG Tab PO ONE (12:00)
== END 2020-02-28 13:05 | disposition home or self-care (01) | DRG 193 ==
LOC: JP.ICU 15:14 → JP.MS 02-27 12:08
PROVIDERS: ADMIT Internal Medicine; ATTEND Internal Medicine
DX: J18.9 Pneumonia, unspecified organism (principal); J96.01 Acute respiratory failure with hypoxia; D45 Polycythemia vera; H91.90 Unspecified hearing loss, unspecified ear; H54.7 Unspecified visual loss; E78.00 Pure hypercholesterolemia, unspecified; Z20.828 Contact with and (suspected) exposure to other viral communicable diseases; Z79.899 Other long term (current) drug therapy; Z79.82 Long term (current) use of aspirin; Z90.49 Acquired absence of other specified parts of digestive tract
CPT/HCPCS: 36415; 80048; 83735; 84145; 85027; 86140; 87040; 94640; 94667; A9270-GY; J1956; J2543; J2930; J7030; J7512; U0002

== ENCOUNTER 2024-11-18 18:57 | Emergency (ER) | payer MEDICARE, BC ==
[2024-11-18] MEDS ORDERED: Sodium Chloride 0.9% 10 ML Syringe FLUSH PRN (19:44)
[2024-11-18] MEDS: Ondansetron 4 MG/2 ML SDV IVPUSH ONE (21:24)
[2024-11-18] MEDS: Morphine 2 MG/ML SYRINGE IVPUSH ONE (21:30)
[2024-11-18] MEDS: ceFAZolin 2 GM in Sodium Chloride 0.9% 50 ML IV ONE (21:37)
== END 2024-11-18 22:24 ==
LOC: JP.ED 18:57
DX: T81.31XA Disruption of external operation (surgical) wound, not elsewhere classified, initial encounter (principal); F17.210 Nicotine dependence, cigarettes, uncomplicated; Z96.652 Presence of left artificial knee joint; Z79.82 Long term (current) use of aspirin; Z79.899 Other long term (current) drug therapy; W19.XXXA Unspecified fall, initial encounter
CPT/HCPCS: 73562; 96365; 96375; 99285; J0690; J2270; J2405